=== PATIENT | female | born 1935 | race Caucasian/White ===

== ENCOUNTER 2017-07-18 15:31 | Inpatient (IN) | payer OTHER ==
[~2017-07-18] VITALS: Ht 165.1 cm; Wt 72.6 kg
[~2017-07-18 15:31] MED LIST: ACET325 PO; ACET500 PO; ALBU3IS INH; ALEN70 PO; ASCO250CH PO; ASCO500 PO; ATOR10 PO; Artificial Tea1 EACH BOTHEYES; BECL80OI INH; BISA10S PR; BUME2 PO; CALCAVITD PO; CALCAVITDA PO; CALCIUM 500 +1 EAC2 PO; CEPH500 PO; CETI5 PO; CHLORASEPTIC T1 EACH PO; CLOT1TC TOP; CODGUAEL PO; Cipro500 MG PO; DOCU100 PO; DOXE0.5 PO; DOXY100 PO; EYE BOTHEYES; FAMO20 PO; FLUT.05NI; FLUT44OIA IH; FURO40 PO; Flagyl500 MG PO; HYDACE5 PO; HYDR1TAB94 PO; IPRA.03NI; LEVFLO250 PO; LEVFLO500 PO; LORA10 PO; LORA10ER PO; LOSA50 PO; METO2.5 PO; MOM PO; MONT10T PO; MULVITMIND PO; NYST100TC TOP; NYSTATIN TOP; ONDA4 PO; POTA8 PO; POTCHL20ER PO; Prosource30 ML PO; Rocephin 1g1 G/50 ML IV; SACC250C PO; SERT25 PO; SERT50 PO; SIME80CH PO; SIMV10 PO; SIMV40 PO; SPIR25 PO; TRAM50 PO; Therems1 EACH PO; ZINC20TO TOP; [UNRECOGNIZED DRUG - OTHER] TOP
[2017-07-18] MEDS ORDERED: LEVE500 PO (16:03)
[2017-07-18] MEDS ORDERED: POTA10T PO (16:04)
[2017-07-18] MEDS ORDERED: CHOL10002 PO (16:06)
[2017-07-18] MEDS ORDERED: CRANBERRY450 M1 PO (16:06)
[2017-07-18] MEDS ORDERED: BENZ100A PO (16:08)
[2017-07-18 16:15] LABS: BASOPHILS ABSOLUTE AUTO 0.09 K/mm3 (0.00-0.23); BASOPHILS PERCENT AUTO 1 % (0-2); EOSINOPHILS PERCENT AUTO 2 % (0-6); Hematocrit 45.2 % (33.0-51.0); Hemoglobin 13.8 g/dL (11.5-16.0); IMMATURE GRAN ABSOLUTE AUTO 0.04 K/mm3 (0.00-0.10); IMMATURE GRAN PERCENT AUTO 0 % (0-1); LYMPHOCYTES ABSOLUTE AUTO 1.72 K/mm3 (0.84-5.20); LYMPHOCYTES PERCENT AUTO 15 % (21-46); MONOCYTES ABSOLUTE AUTO 1.04 K/mm3 (0.16-1.47); MONOCYTES PERCENT AUTO 9 % (4-13); Mean Corpuscular HGB 27.9 pg (26.0-34.0); Mean Corpuscular HGB Conc 30.5 g/dL (31.5-36.5); Mean Corpuscular Volume 91 fL (80-100); Mean Platelet Volume 9.9 fL (9.1-12.4); NEUTROPHILS ABSOLUTE AUTO 8.25 K/mm3 (1.96-9.15); NEUTROPHILS PERCENT AUTO 73 % (41-73); Platelet Count 254 K/mm3 (150-400); RDW Coefficient Variation 14.8 % (11.7-14.2); RDW Standard Deviation 49.8 fL (35.1-46.3); Red Blood Cell Count 4.95 M/mm3 (3.80-5.20); White Blood Cell Count 11.34 K/mm3 (4.00-11.30)
[2017-07-18 16:30] LABS: Prothrombin Time Results 10.4 Sec (9.7-11.5)
[2017-07-18 16:39] LABS: Alanine Aminotransfer (ALT/SGP 13 U/L (12-78); Albumin, Blood 3.1 g/dL (3.4-5.0); Albumin/Globulin Ratio 0.9 (0.8-1.8); Alk Phos 94 U/L (50-136); Anion Gap 7 mmol/L (6-16); Aspartate Aminotrans (AST/SGOT 15 U/L (12-37); Bilirubin, Total 0.2 mg/dL (0.1-1.0); Blood Urea Nitrogen 21 mg/dL (8-24); Bun/Creatinine Ratio 22.9 (12.0-20.0); CO2, Blood 32 mmol/L (21-32); Calcium, Blood 8.7 mg/dL (8.5-10.1); Chloride, Blood 102 mmol/L (98-108); Creatinine, Blood 0.92 mg/dL (0.40-1.00); Globulin, Blood 3.5 g/dL (2.2-4.0); Glomerular Filtration Rate >60 (60-); Glucose, Blood 87 mg/dL (70-99); Potassium, Blood 4.7 mmol/L (3.5-5.5); Sodium, Blood 141 mmol/L (136-145); Total Protein, Blood 6.6 g/dL (6.4-8.2)
[2017-07-19 05:38] LABS: BASOPHILS ABSOLUTE AUTO 0.02 K/mm3 (0.00-0.23); BASOPHILS PERCENT AUTO 0 % (0-2); EOSINOPHILS PERCENT AUTO 0 % (0-6); Hematocrit 45.3 % (33.0-51.0); Hemoglobin 13.5 g/dL (11.5-16.0); IMMATURE GRAN ABSOLUTE AUTO 0.04 K/mm3 (0.00-0.10); IMMATURE GRAN PERCENT AUTO 1 % (0-1); LYMPHOCYTES ABSOLUTE AUTO 0.45 K/mm3 (0.84-5.20); LYMPHOCYTES PERCENT AUTO 5 % (21-46); MONOCYTES ABSOLUTE AUTO 0.27 K/mm3 (0.16-1.47); MONOCYTES PERCENT AUTO 3 % (4-13); Mean Corpuscular HGB 27.4 pg (26.0-34.0); Mean Corpuscular HGB Conc 29.8 g/dL (31.5-36.5); Mean Corpuscular Volume 92 fL (80-100); NEUTROPHILS PERCENT AUTO 91 % (41-73); Platelet Count 246 K/mm3 (150-400); RDW Coefficient Variation 14.8 % (11.7-14.2); RDW Standard Deviation 50.6 fL (35.1-46.3); Red Blood Cell Count 4.93 M/mm3 (3.80-5.20); White Blood Cell Count 8.68 K/mm3 (4.00-11.30)
[2017-07-19 06:04] LABS: Alanine Aminotransfer (ALT/SGP 13 U/L (12-78); Albumin, Blood 3.1 g/dL (3.4-5.0); Albumin/Globulin Ratio 0.8 (0.8-1.8); Alk Phos 78 U/L (50-136); Anion Gap 8 mmol/L (6-16); Aspartate Aminotrans (AST/SGOT 12 U/L (12-37); Bilirubin, Total 0.3 mg/dL (0.1-1.0); Blood Urea Nitrogen 22 mg/dL (8-24); Bun/Creatinine Ratio 25.6 (12.0-20.0); CO2, Blood 28 mmol/L (21-32); Calcium, Blood 8.7 mg/dL (8.5-10.1); Chloride, Blood 104 mmol/L (98-108); Creatinine, Blood 0.86 mg/dL (0.40-1.00); Globulin, Blood 3.8 g/dL (2.2-4.0); Glomerular Filtration Rate >60 (60-); Glucose, Blood 144 mg/dL (70-99); Potassium, Blood 4.8 mmol/L (3.5-5.5); Sodium, Blood 140 mmol/L (136-145); Total Protein, Blood 6.9 g/dL (6.4-8.2)
== END 2017-07-20 16:45 | DRG 175 ==
LOC: ER 15:31 → PCU 19:55
PROVIDERS: Emergency Medicine; Internal Medicine
DX: I26.99 Other pulmonary embolism without acute cor pulmonale (principal); J96.01 Acute respiratory failure with hypoxia; I10 Essential (primary) hypertension; G40.909 Epilepsy, unspecified, not intractable, without status epilepticus; E78.5 Hyperlipidemia, unspecified; I73.9 Peripheral vascular disease, unspecified; J44.9 Chronic obstructive pulmonary disease, unspecified; M54.9 Dorsalgia, unspecified; G89.29 Other chronic pain; Z74.09 Other reduced mobility; Z99.3 Dependence on wheelchair; Z86.12 Personal history of poliomyelitis; Z88.6 Allergy status to analgesic agent; Z88.0 Allergy status to penicillin; Z88.8 Allergy status to other drugs, medicaments and biological substances; Z79.899 Other long term (current) drug therapy
CPT/HCPCS: 36415; 71046; 71260; 80053; 85025; 85610; 85730; 92610; 93005; 93010; 93971; 94640; 94760; 94761; 96374; 99285; G8996; G8997; G8998; J1644; J2405; J2930; J3010; J7060; Q9967

== ENCOUNTER 2017-08-22 07:23 | Emergency (ER) | payer OTHER ==
[~2017-08-22] VITALS: Ht 162.6 cm; Wt 68.0 kg
[~2017-08-22 07:23] MED LIST changes: +BENZ100A PO; +CHOL10002 PO; +CRANBERRY450 M1 PO; +LEVE500 PO; +POTA10T PO
[2017-08-22 07:47] LABS: Source, Urine Catheter
[2017-08-22 07:50] LABS: Bilirubin, Urine Neg (Neg); Blood, Urine 2+ (Neg); Glucose Qualitative, Urine Neg (Neg); Ketones, Urine Neg (Neg); Leukocyte Esterase, Urine 3+ (Neg); Nitrite, Urine Pos (Neg); Protein, Urine Neg (Neg); Specific Gravity, Urine 1.015 (1.003-1.022); Urobilinogen, Urine NORM (Normal)
[2017-08-22 07:52] LABS: Appearance, Urine Cloudy (Clear); Color, Urine Yellow (P-Yellow)
[2017-08-22] MEDS ORDERED: Macrobid 100 M100 MG PO (07:56)
[2017-08-22 07:58] LABS: White Blood Cells, Urine TNTC /hpf (0-5)
[2017-08-22 07:59] LABS: Bacteria Many /hpf; Squamous Epithelial Cells Not Seen /hpf (Few)
[2017-08-22 08:00] LABS: Transitional Epithelial Cells Rare /hpf (0-Rare)
[2017-08-22] MEDS ORDERED: XARELTO20 MG PO (08:49)
[2017-08-23] MEDS ORDERED: Zofran Odt4 MG PO (03:09)
== END 2017-08-22 09:45 | disposition home or self-care (01) ==
LOC: ER 07:23
PROVIDERS: Emergency Medicine
DX: R41.82 Altered mental status, unspecified (principal); N39.0 Urinary tract infection, site not specified; E78.5 Hyperlipidemia, unspecified; K21.9 Gastro-esophageal reflux disease without esophagitis; I10 Essential (primary) hypertension; F32.9 Major depressive disorder, single episode, unspecified; Z88.0 Allergy status to penicillin; Z88.6 Allergy status to analgesic agent; Z88.8 Allergy status to other drugs, medicaments and biological substances; Z79.899 Other long term (current) drug therapy
CPT/HCPCS: 81001; 87077; 87086; 87186; 99283; P9612

== ENCOUNTER 2017-08-23 01:00 | Emergency (ER) | payer OTHER ==
[~2017-08-23] VITALS: Ht 162.6 cm; Wt 72.6 kg
[~2017-08-23 01:00] MED LIST changes: +Macrobid 100 M100 MG PO; +XARELTO20 MG PO
[2017-08-23 01:45] LABS: BASOPHILS ABSOLUTE AUTO 0.06 K/mm3 (0.00-0.23); BASOPHILS PERCENT AUTO 0 % (0-2); EOSINOPHILS PERCENT AUTO 0 % (0-6); Hematocrit 43.9 % (33.0-51.0); IMMATURE GRAN ABSOLUTE AUTO 0.08 K/mm3 (0.00-0.10); IMMATURE GRAN PERCENT AUTO 1 % (0-1); LYMPHOCYTES ABSOLUTE AUTO 0.49 K/mm3 (0.84-5.20); LYMPHOCYTES PERCENT AUTO 3 % (21-46); MONOCYTES ABSOLUTE AUTO 0.53 K/mm3 (0.16-1.47); MONOCYTES PERCENT AUTO 4 % (4-13); Mean Corpuscular HGB 28.8 pg (26.0-34.0); Mean Corpuscular HGB Conc 31.9 g/dL (31.5-36.5); Mean Corpuscular Volume 90 fL (80-100); Mean Platelet Volume 9.8 fL (9.1-12.4); NEUTROPHILS ABSOLUTE AUTO 13.29 K/mm3 (1.96-9.15); NEUTROPHILS PERCENT AUTO 92 % (41-73); Platelet Count 282 K/mm3 (150-400); RDW Standard Deviation 52.7 fL (35.1-46.3); Red Blood Cell Count 4.86 M/mm3 (3.80-5.20); White Blood Cell Count 14.45 K/mm3 (4.00-11.30)
[2017-08-23 02:18] LABS: Alanine Aminotransfer (ALT/SGP 16 U/L (12-78); Albumin, Blood 3.3 g/dL (3.4-5.0); Albumin/Globulin Ratio 0.9 (0.8-1.8); Alk Phos 74 U/L (50-136); Anion Gap 10 mmol/L (6-16); Aspartate Aminotrans (AST/SGOT 13 U/L (12-37); Bilirubin, Total 0.4 mg/dL (0.1-1.0); Blood Urea Nitrogen 16 mg/dL (8-24); Bun/Creatinine Ratio 20.5 (12.0-20.0); CO2, Blood 27 mmol/L (21-32); Calcium, Blood 8.3 mg/dL (8.5-10.1); Chloride, Blood 103 mmol/L (98-108); Creatinine, Blood 0.78 mg/dL (0.40-1.00); Globulin, Blood 3.8 g/dL (2.2-4.0); Glomerular Filtration Rate >60 (60-); Glucose, Blood 141 mg/dL (70-99); Potassium, Blood 4.2 mmol/L (3.5-5.5); Sodium, Blood 140 mmol/L (136-145); Total Protein, Blood 7.1 g/dL (6.4-8.2); Troponin I <0.015 ng/mL (0.000-0.040)
[2017-08-23] MEDS ORDERED: Zofran Odt4 MG PO (03:09)
== END 2017-08-23 04:26 | disposition home or self-care (01) ==
LOC: ER 01:00
PROVIDERS: Emergency Medicine
DX: R11.2 Nausea with vomiting, unspecified (principal); E78.5 Hyperlipidemia, unspecified; K21.9 Gastro-esophageal reflux disease without esophagitis; I10 Essential (primary) hypertension; F32.9 Major depressive disorder, single episode, unspecified; Z88.0 Allergy status to penicillin; Z88.6 Allergy status to analgesic agent; Z88.8 Allergy status to other drugs, medicaments and biological substances; Z79.51 Long term (current) use of inhaled steroids; Z79.899 Other long term (current) drug therapy
CPT/HCPCS: 36415; 71046; 80053; 83690; 84484; 85025; 93005; 93010; 96361; 96374; 99283; J2405; J7030

== ENCOUNTER 2017-11-26 10:27 | Emergency (ER) | payer OTHER ==
[~2017-11-26] VITALS: Ht 165.1 cm; Wt 63.5 kg
[~2017-11-26 10:27] MED LIST changes: +Zofran Odt4 MG PO
[2017-11-26] MEDS ORDERED: SPIR25 PO (10:40)
== END 2017-11-26 14:09 | disposition home or self-care (01) ==
LOC: ER 10:27
DX: M79.81 Nontraumatic hematoma of soft tissue (principal); E78.5 Hyperlipidemia, unspecified; K21.9 Gastro-esophageal reflux disease without esophagitis; I10 Essential (primary) hypertension; F31.9 Bipolar disorder, unspecified; Z88.0 Allergy status to penicillin; Z88.8 Allergy status to other drugs, medicaments and biological substances; Z79.899 Other long term (current) drug therapy
CPT/HCPCS: 73600; 93971; 99284

== ENCOUNTER → 2018-01-03 | Outpatient (CLI) | payer OTHER ==
[2018-01-03 09:58] LABS: Bilirubin, Urine Neg (Neg); Blood, Urine 3+ (Neg); Glucose Qualitative, Urine Neg (Neg); Ketones, Urine Neg (Neg); Leukocyte Esterase, Urine 3+ (Neg); Nitrite, Urine Pos (Neg); Protein, Urine 2+ (Neg); Urobilinogen, Urine NORM (Normal)
[2018-01-03 10:15] LABS: Appearance, Urine Cloudy (Clear); Color, Urine Yellow (P-Yellow)
[2018-01-03 10:18] LABS: White Blood Cells, Urine TNTC /hpf (0-5)
[2018-01-03 10:21] LABS: Bacteria Many /hpf
[2018-01-03 10:23] LABS: Squamous Epithelial Cells Rare /hpf (Few)
== END | disposition home or self-care (01) ==
LOC: LAB RH 09:50 → EDSTATUS 14:32
PROVIDERS: Nurse Practitioner Primary Care
DX: N18.3 Chronic kidney disease, stage 3 (moderate) (principal); N39.46 Mixed incontinence
CPT/HCPCS: 81001; 87077; 87086; 87186

== ENCOUNTER → 2018-01-13 | Outpatient (CLI) | payer OTHER ==
[2018-01-13 14:35] LABS: Albumin, Blood 3.5 g/dL (3.4-5.0); Anion Gap 7 mmol/L (6-16); Blood Urea Nitrogen 24 mg/dL (8-24); Bun/Creatinine Ratio 19.7 (12.0-20.0); CO2, Blood 30 mmol/L (21-32); Calcium, Blood 9.7 mg/dL (8.5-10.1); Chloride, Blood 96 mmol/L (98-108); Creatinine, Blood 1.22 mg/dL (0.40-1.00); Glomerular Filtration Rate 45 (60-); Glucose, Blood 150 mg/dL (70-99); Potassium, Blood 5.5 mmol/L (3.5-5.5); Sodium, Blood 133 mmol/L (136-145)
== END | disposition home or self-care (01) ==
LOC: LAB RH 13:54 → EDSTATUS 14:34
PROVIDERS: Internal Medicine Nephrology
DX: N18.3 Chronic kidney disease, stage 3 (moderate) (principal); D63.1 Anemia in chronic kidney disease; D75.1 Secondary polycythemia
CPT/HCPCS: 80069

== ENCOUNTER 2018-05-20 02:08 | Inpatient (IN) | payer OTHER ==
[~2018-05-20] VITALS: Ht 162.6 cm; Wt 68.7 kg
[~2018-05-20 02:08] MED LIST changes: +XARELTO10 MG PO; -XARELTO20 MG PO
[2018-05-20] MEDS ORDERED: SPIR25 PO (02:26)
[2018-05-20] MEDS ORDERED: BUME1 PO (02:27)
[2018-05-20] MEDS ORDERED: BUME2 (02:27)
[2018-05-20] MEDS ORDERED: DOCU100 PO (02:29)
[2018-05-20] MEDS ORDERED: CRANBERRY450 M1 PO (02:29)
[2018-05-20] MEDS ORDERED: BISA10S PR (02:29)
[2018-05-20] MEDS ORDERED: COMBIVENT RESPIM4 GM INH (02:31)
[2018-05-20] MEDS ORDERED: LEVE500 PO ×2 (02:32→02:33)
[2018-05-20] MEDS ORDERED: Micro-K10 MEQ PO (02:33)
[2018-05-20] MEDS ORDERED: GAVILAX17 GM PO (02:34)
[2018-05-20] MEDS ORDERED: FAMO20 PO (02:34)
[2018-05-20] MEDS ORDERED: Q-Tussin100 MG/5 M PO (02:35)
[2018-05-20 02:40] LABS: BASOPHILS ABSOLUTE AUTO 0.08 K/mm3 (0.00-0.23); BASOPHILS PERCENT AUTO 1 % (0-2); EOSINOPHILS ABSOLUTE AUTO 0.03 K/mm3 (0.00-0.68); EOSINOPHILS PERCENT AUTO 0 % (0-6); Hematocrit 35.4 % (33.0-51.0); Hemoglobin 9.8 g/dL (11.5-16.0); IMMATURE GRAN ABSOLUTE AUTO 0.05 K/mm3 (0.00-0.10); IMMATURE GRAN PERCENT AUTO 0 % (0-1); LYMPHOCYTES ABSOLUTE AUTO 2.12 K/mm3 (0.84-5.20); LYMPHOCYTES PERCENT AUTO 18 % (21-46); MONOCYTES ABSOLUTE AUTO 1.22 K/mm3 (0.16-1.47); MONOCYTES PERCENT AUTO 10 % (4-13); Mean Corpuscular HGB 21.5 pg (26.0-34.0); Mean Corpuscular HGB Conc 27.7 g/dL (31.5-36.5); Mean Corpuscular Volume 78 fL (80-100); Mean Platelet Volume 9.6 fL (9.1-12.4); NEUTROPHILS ABSOLUTE AUTO 8.57 K/mm3 (1.96-9.15); NEUTROPHILS PERCENT AUTO 71 % (41-73); Platelet Count 298 K/mm3 (150-400); RDW Coefficient Variation 17.4 % (11.7-14.2); RDW Standard Deviation 49.6 fL (35.1-46.3); Red Blood Cell Count 4.56 M/mm3 (3.80-5.20); White Blood Cell Count 12.07 K/mm3 (4.00-11.30)
[2018-05-20 03:00] LABS: Albumin, Blood 2.9 g/dL (3.4-5.0); Albumin/Globulin Ratio 0.8 (0.8-1.8); Bilirubin, Total 0.4 mg/dL (0.1-1.0); Bun/Creatinine Ratio 19.6 (12.0-20.0); Creatinine, Blood 1.07 mg/dL (0.40-1.00); Globulin, Blood 3.5 g/dL (2.2-4.0); Potassium, Blood 4.1 mmol/L (3.5-5.5); Total Protein, Blood 6.4 g/dL (6.4-8.2)
[2018-05-20 04:14] LABS: International Normalized Ratio 1.06; Prothrombin Time Results 10.9 Sec (9.7-11.5)
--- NOTE | 2018-05-20 06:11 | NUR ---
ADMIT PT ARRIVED TO ICU 11 AT 0505 MEDICAL STATUS WITH TELE. PT IS ALERT AND ORIENTED TO SELF AND FOLLOWING DIRECTION, BUT IS CONFUSED OTHERWISE. PT IS CALM AND COOPERATIVE. PT DENIES PAIN, SOB, OR NAUSEA. PT ON 2L O2 NC, VITAL SIGNS STABLE. NS INFUSING AT 100 ML/HR AND HEPARIN GTT INFUSING AT 13 UNITS/HR PER PHARMACY ORDERS. PT INCONTINENT UPON ARRIVAL, ATTENDS CHANGED AT THAT TIME. PT RIGHT LEG IS SWOLLEN, REDDENED, AND WARM BELOW THE KNEE. PT STATES IT HAS BEEN THIS WAY FOR AWHILE. NO FAMILY PRESENT. WILL CONTINUE TO MONITOR AND REPORT OFF TO ONCOMING RN.
[2018-05-20] MEDS ORDERED: KEPPRA250 MG PO (06:13)
[2018-05-20] MEDS ORDERED: ENEMA READY TO133 ML PR (06:23)
--- NOTE | 2018-05-20 07:15 | NUR ---
START OF SHIFT NOTE: RECEIVED REPORT FROM ANYA RN, ASSUMED CARE, PATIENT IS LYING IN BED AND STATES "I AM TIRED", ADMITTED DURING NIGHT FOR POSSIBLE BILATERAL PE'S, 18G IV WAS PLACED IN LEFT AC, PATIENT TOLERATED WELL, AFEBRILE, DENIES PAIN, REPORTS NO SHORTNESS OF BREATH, DENIES CHEST PAIN/COMFORT, MECHANICAL APPLICATIONS ENGINEER IN TO DO ORDERED ECHO, PT IN TO SEE PATIENT, DR. LING IN TO SEE PATIENT, NEW ORDERS RECEIVED, PAGE FROM RADIOLOGY, WILL COME FOR PATIENT AFTER 10:00 AM TO DO PE STUDY, PATIENT IS INCONTINENT, ATTENDS CHANGED AND CLEANED, NEW LINEN UNDER PATIENT, PATIENT IS ALERT AND ORIENTED TO SELF ONLY, PLEASANTLY CONFUSED, RESIDES NORMALLY AT [facility], REPOSITIONED FOR COMFORT, CALL LIGHT IN REACH, WILL CONTINUE TO MONITOR.
--- NOTE | 2018-05-20 10:13 | NUR ---
PATIENT TOOK AM MEDICATION WITH CHOCOLATE PUDDING, NO PROBLEMS SWALLOWING, WILL CONTINUE TO MONITOR.
--- NOTE | 2018-05-20 11:41 | NUR ---
JABIER, TRANSPORT HERE TO TAKE PATIENT TO IMAGING FOR PE STUDY,
--- NOTE | 2018-05-20 15:42 | NUR ---
ATTEMPTED TO CALL REPORT TO RECEIVING RN IN PCU, WILL CALL BACK ONCE HER ADMIT IS SETTLED.
--- NOTE | 2018-05-20 16:21 | NUR ---
PATIENT WAS ADMITTED WITH CODE STATUS "DNR", PER LAZARO THE PATIENT WISHES TO BE A FULL CODE AND IS VERY ADAMEND ABOUT IT, WHEN READING DR. MAJOR'S H&P FROM LAST NIGHTS ADMISSION HE LISTED THE PATIENTS CODE STATUS "FULL CODE", CALLED DR. LING AND RECEIVED TELEPHONE ORDER TO CHANGE CODE STATUS FROM DNR TO FULL CODE.
--- NOTE | 2018-05-20 16:31 | NUR ---
REPORT CALLED TO DENNY DONOHUE RN, ON PCU, PATIENT WILL BE TRANSFERRED TO ROOM 11 ON PCU VIA BED.
--- NOTE | 2018-05-20 16:58 | NUR ---
PATIENT TRANSFERRED TO PCU 11 VIA BED.
[2018-05-21 04:05] LABS: BASOPHILS ABSOLUTE AUTO 0.06 K/mm3 (0.00-0.23); BASOPHILS PERCENT AUTO 1 % (0-2); EOSINOPHILS ABSOLUTE AUTO 0.21 K/mm3 (0.00-0.68); EOSINOPHILS PERCENT AUTO 2 % (0-6); Hematocrit 34.1 % (33.0-51.0); Hemoglobin 9.2 g/dL (11.5-16.0); IMMATURE GRAN ABSOLUTE AUTO 0.05 K/mm3 (0.00-0.10); IMMATURE GRAN PERCENT AUTO 0 % (0-1); LYMPHOCYTES ABSOLUTE AUTO 1.14 K/mm3 (0.84-5.20); LYMPHOCYTES PERCENT AUTO 10 % (21-46); MONOCYTES ABSOLUTE AUTO 0.95 K/mm3 (0.16-1.47); MONOCYTES PERCENT AUTO 8 % (4-13); Mean Corpuscular Volume 78 fL (80-100); Mean Platelet Volume 9.7 fL (9.1-12.4); NEUTROPHILS ABSOLUTE AUTO 9.07 K/mm3 (1.96-9.15); NEUTROPHILS PERCENT AUTO 79 % (41-73); Platelet Count 272 K/mm3 (150-400); RDW Coefficient Variation 17.5 % (11.7-14.2); RDW Standard Deviation 49.1 fL (35.1-46.3); Red Blood Cell Count 4.39 M/mm3 (3.80-5.20); White Blood Cell Count 11.48 K/mm3 (4.00-11.30)
[2018-05-21 04:27] LABS: Albumin, Blood 2.9 g/dL (3.4-5.0); Albumin/Globulin Ratio 0.9 (0.8-1.8); Bilirubin, Total 0.2 mg/dL (0.1-1.0); Bun/Creatinine Ratio 18.8 (12.0-20.0); Calcium, Blood 7.6 mg/dL (8.5-10.1); Creatinine, Blood 1.17 mg/dL (0.40-1.00); Globulin, Blood 3.2 g/dL (2.2-4.0); Magnesium, Blood 2.3 mg/dL (1.6-2.4); Potassium, Blood 4.5 mmol/L (3.5-5.5); Total Protein, Blood 6.1 g/dL (6.4-8.2)
--- NOTE | 2018-05-21 06:45 | NUR ---
SHIFTS SUMMARY: PATIENT IS A&O X3, DOES NOT KNOW DATE, VS ARE STABLE. INC. OF BOWEL AND BLADDER, Q 2H T&P WITH ATTENDS CHANGES. BUTTOCKS IS RED, BARIER CREAM IS APPLIED. BED ALARM IS ON FOR SAFETY. CALL TERRELL IS WITHIN REACH
--- NOTE | 2018-05-21 09:00 | NUR ---
REPORT RECIEVED FROM CHARLES MEDINA, PT IS RESTING WITH EYES CLOSED RESP, E/U.
--- NOTE | 2018-05-21 10:15 | NUR ---
REOPORT GIVEN TO NELLY MEDINA.
--- NOTE | 2018-05-21 18:09 | NUR ---
PCU NOC SHIFT SUMMARY PATIENT ALERT AND ORIENTED TO SELF. PATIENT CONFUSED AT TIMES TO LOCATION THINKING THAT SHE IS STILL AT [facility]. PATIENT COOPERATIVE WITH CARE; PATIENT ENCOURAGED AND MOTIVATED TO PROVIDE SELF CARE MUCH TOLERATED. PER [facility] PATIENT IS BEDREST WITH LIFT AND/OR WHEELCHAIR AT FACILITY. PATIENT BILATERAL FEET/ANKLES ARE TURNED IN (DECORDICATED) WITH BLE EDEMA NOTED. PATIENT TURNED Q2 AND UP TO CHAIR WITH LIFE THIS SHIFT. PATIENT EATING AND DRINKING WELL WITH EXCEPTION OF CONCERN FOR POSSIBLE ASPIRATION - PATIENT SET UP AT 90 DEGREES AND EDUCATED TO EAT SLOW AND CHEW FOOD - SPEECH EVAL ORDERED. PATIENT HAD [address] - WHEN ATTEMPTED TO TITRATE OXYGEN PATIENT WOULD DESATURATE DOWN TO 84% ON ROOM AIR - PATIENT NEEDS HOME O2 EVAL. PATIENT TO D/C TO [facility]. NO ACUTE DISTRESS NOTED; VSS; CALL LIGHT W/I REACH. WILL CONTINUE TO MONITOR AND GIVE REPORT TO NOC SHIFT RN.
--- NOTE | 2018-05-21 21:11 | NUR ---
CARE ASSUMPTION PT MED, NO TELE STATUS, A&O X4, CALM AND COOPERATIVE. PT ON BEDREST/WHEELCHAIR BOUND AT BASELINE. LUNG SOUNDS CLEAR T/0, DIM IN BASES. SPO2 > 92% ON 1L NC. PT HAS OCCASSIONAL NONPRODUCTIVE COUGH. PT SAT UPRIGHT FOR MEDICATION SWALLOWING IN BED, PT ABLE TO SWALLOW MEDS W/OUT DIFFICULTY BUT BEGINS COUGHING DIRECTLY AFTER SWALLOWING PILLS W/ WATER. PT INCONTINENT, WEARING ATTENDS. PRN RICARDO CARE AND ATTENDS CHANGES PROVIDED. Q2H TURNS. WILL CONTINUE TO MONITOR AND PROVIDE CARE.
[2018-05-22 03:56] LABS: BASOPHILS ABSOLUTE AUTO 0.07 K/mm3 (0.00-0.23); BASOPHILS PERCENT AUTO 1 % (0-2); EOSINOPHILS ABSOLUTE AUTO 0.26 K/mm3 (0.00-0.68); EOSINOPHILS PERCENT AUTO 2 % (0-6); Hematocrit 34.5 % (33.0-51.0); Hemoglobin 9.3 g/dL (11.5-16.0); IMMATURE GRAN ABSOLUTE AUTO 0.06 K/mm3 (0.00-0.10); IMMATURE GRAN PERCENT AUTO 1 % (0-1); LYMPHOCYTES PERCENT AUTO 9 % (21-46); MONOCYTES ABSOLUTE AUTO 1.05 K/mm3 (0.16-1.47); MONOCYTES PERCENT AUTO 9 % (4-13); Mean Corpuscular Volume 78 fL (80-100); Mean Platelet Volume 9.5 fL (9.1-12.4); NEUTROPHILS ABSOLUTE AUTO 9.58 K/mm3 (1.96-9.15); NEUTROPHILS PERCENT AUTO 79 % (41-73); Platelet Count 290 K/mm3 (150-400); RDW Coefficient Variation 17.6 % (11.7-14.2); Red Blood Cell Count 4.42 M/mm3 (3.80-5.20); White Blood Cell Count 12.12 K/mm3 (4.00-11.30)
[2018-05-22 04:21] LABS: Albumin, Blood 2.8 g/dL (3.4-5.0); Albumin/Globulin Ratio 0.8 (0.8-1.8); Bilirubin, Total 0.5 mg/dL (0.1-1.0); Bun/Creatinine Ratio 21.9 (12.0-20.0); Calcium, Blood 7.6 mg/dL (8.5-10.1); Creatinine, Blood 1.05 mg/dL (0.40-1.00); Globulin, Blood 3.4 g/dL (2.2-4.0); Magnesium, Blood 2.4 mg/dL (1.6-2.4); Potassium, Blood 4.4 mmol/L (3.5-5.5); Total Protein, Blood 6.2 g/dL (6.4-8.2)
--- NOTE | 2018-05-22 07:58 | NUR ---
[id number] PT W/ MOIST, NONPRODUCTIVE COUGH. O2 1L NASAL CANULA. EXPRESSING RIB DISCOMFORT AFTER COUGHING PAROXYSM, FRUSTRATION OF INSOMNIA, TYLENOL OFFERED, PT SLEEPING WHEN RETURNED, SLEPT AT INTERVALS, PERICARE, PART LINEN CHANGES INTERMIT FOR URINARY INCONT NOT CONTAINED BY ATTENDS. PT W/AUDIBLE WHEEZE, MARGINAL SPO2 AFTER MOVING IN BED, R.T. CALLED FOR INTERVENTION. IMPROVED. O2 AT 2L. RETURNED TO SLEEP, ADMITS TO ONLY MILD PAIN IN AM
--- NOTE | 2018-05-22 08:10 | NUR ---
INITIAL ASSESSMENT: Pt resting in bed. Denies pain at this time. LS diminished with coarsness throughout. HR reg. BT positive. Pulses palp. RLE with slightly more edema then L. Redness on coccyx. Pt has a history of polio and has poor movement of BLE. VSS. Call light in reach. Pt has barking cough that is non-productive. Denies other needs. Will monitor.
--- NOTE | 2018-05-22 11:03 | NUR ---
UPDATE: PT STATES THAT SHE IS FEELING NAUSEAS AND THAT SHE HAS A HEADACHE. PT SLIGHTLY DIAPHERETIC. AFEBRIAL. WILL MEDICATE WITH ZOFRAN AND TYLENOL PER ORDERS. VSS. PT CLEANED UP AND REPOSITIONED. WILL CONTINUE TO MONITOR.
--- NOTE | 2018-05-22 18:35 | NUR ---
SHIFT SUMMARY: Pt resting in bed. LS with wheezing and diminished throughout. Pt has been coughing throughout shift but has not coughed anything up. Pt has had some back pain and has had a headache on and off throughout shift. VSS throughout shift. Pt has one episode of nausea with no emisis. Zofran worked for nausea. No acute changes throughout shift.
--- NOTE | 2018-05-22 19:40 | NUR ---
ASSUMED CARE PT RESTING IN ROOM. PER DAY SHIFT PT HAS BEEN PAINFUL IN NECK AND SHOULDERS AND UTILIZES CALL LIGHT OFTEN FOR REPOSITIONING AND REQUESTING HELP FOR PAIN. PT REPOSITIONED AND PROPPED UP WITH PILLOWS AT SHIFT CHANGE AND WAS MEDICATED FOR PAIN PRIOR TO SHIFT CHANGE. RESP EVEN UNLABORED BUT SHALLOW AND TACHYPNIC. PER DAY SHIFT THIS IS BASELINE FOR PT. PT REPOTS PAIN IS BETTER WITH REPOSITION. PT NATURALLY LEANS TO R SIDE FOR COMFORT. CALL LIGHT IS IN REACH.
[2018-05-23 05:18] LABS: BASOPHILS PERCENT AUTO 1 % (0-2); EOSINOPHILS ABSOLUTE AUTO 0.18 K/mm3 (0.00-0.68); EOSINOPHILS PERCENT AUTO 1 % (0-6); Hematocrit 37.3 % (33.0-51.0); Hemoglobin 9.8 g/dL (11.5-16.0); IMMATURE GRAN ABSOLUTE AUTO 0.05 K/mm3 (0.00-0.10); IMMATURE GRAN PERCENT AUTO 0 % (0-1); LYMPHOCYTES ABSOLUTE AUTO 1.29 K/mm3 (0.84-5.20); LYMPHOCYTES PERCENT AUTO 10 % (21-46); MONOCYTES ABSOLUTE AUTO 1.18 K/mm3 (0.16-1.47); MONOCYTES PERCENT AUTO 9 % (4-13); Mean Corpuscular HGB 20.9 pg (26.0-34.0); Mean Corpuscular HGB Conc 26.3 g/dL (31.5-36.5); Mean Corpuscular Volume 80 fL (80-100); NEUTROPHILS ABSOLUTE AUTO 10.03 K/mm3 (1.96-9.15); NEUTROPHILS PERCENT AUTO 78 % (41-73); Platelet Count 348 K/mm3 (150-400); RDW Coefficient Variation 17.8 % (11.7-14.2); RDW Standard Deviation 51.3 fL (35.1-46.3); Red Blood Cell Count 4.69 M/mm3 (3.80-5.20); White Blood Cell Count 12.83 K/mm3 (4.00-11.30)
--- NOTE | 2018-05-23 05:24 | NUR ---
SHIFT SUMMARY PT SLEPT IN SHORT PERIODS T/O THE NIGHT. CALLED OUT SEVERAL TIMES T/O NIGHT. PT DID NOT USE CALL LIGHT. PT BECAME INCREASINGLY FRUSTRATED T/O NIGHT, ASKING FOR TIME, AND WHY SHE WAS HERE, AND WHEN SHE WAS GOING HOME. PT EDUCATED ON REASON FOR HOSPITAL STAY AND THAT PROVIDER WILL BE IN TO EVALUATE HER IN THE AM. NO ACUTE CHANAGES IN STATUS. PT RESP EVEN UNLABORED, AND TACHYPNIC. [facility]
[2018-05-23 06:06] LABS: Bun/Creatinine Ratio 24.5 (12.0-20.0); Creatinine, Blood 1.1 mg/dL (0.40-1.00); Potassium, Blood 4.9 mmol/L (3.5-5.5)
--- NOTE | 2018-05-23 11:43 | NUR ---
pt resting wanting to eat snacks want to go back to [facility]. Pt has polst on file but notes form [facility] state limited treatment. will attempt copy of polst. Pt at one time was on comfort care and was going towards hospice. Will speak with atilio who we have contacted in past for plan of care. pt being managed by dr Bhakta and Dr. Akbar.
--- NOTE | 2018-05-23 15:45 | NUR ---
NOTE FREQUENT CALLING OUT. HAVE REMIONDED HER REPEATEDLY ABOUT FLOOR ROUNDING POLICY. PT IS ABLE TO USE CALL LIGHT. VSS. TURNED Q2H FOR SKIN PROTECTION. SHE REFUSES TO DO FOR HERSELF UNLESS ENCOURAGED FIRMLY TO LIFT HER OWN CUP AND LIFT HER HEAD UP. PT WANTS TO GO BACK TO [facility]. HAVE NOT HEARD ABOUT A BED FOR HER YET. CONTINUE POT.
--- NOTE | 2018-05-23 17:38 | NUR ---
NOTE PT ALERT AND COOPERATIVE WITH CARE. VSS. DEEP CONGESTED COUGH. SHE HASN'T COUGHED ANYTHING OUT YET. GOOD APPETITE. TAKING PILLS WITH APPLESAUCE WELL. TALKED WITH PT FAMILY ON THE PHONE. ENCOURAGED TO TURN SELF AND USE TRAPEZE FOR BED MOBILITY. SHE HAS GOTTEN BETTER AT SHIFTING HERSELF IN BED. SHE STILL YELLS OUT AT TIMES. SHE CAN'T READ THE CLOCK SO SHE DOESN'T KNOW WHEN STAFF ARE DUE TO COME ROUND ON HER. CONTINUE POT.
[2018-05-24 04:21] LABS: BASOPHILS PERCENT AUTO 1 % (0-2); EOSINOPHILS ABSOLUTE AUTO 0.13 K/mm3 (0.00-0.68); EOSINOPHILS PERCENT AUTO 1 % (0-6); Hematocrit 34.6 % (33.0-51.0); Hemoglobin 9.5 g/dL (11.5-16.0); IMMATURE GRAN ABSOLUTE AUTO 0.06 K/mm3 (0.00-0.10); IMMATURE GRAN PERCENT AUTO 1 % (0-1); LYMPHOCYTES PERCENT AUTO 13 % (21-46); MONOCYTES ABSOLUTE AUTO 1.32 K/mm3 (0.16-1.47); MONOCYTES PERCENT AUTO 10 % (4-13); Mean Corpuscular HGB 21.1 pg (26.0-34.0); Mean Corpuscular HGB Conc 27.5 g/dL (31.5-36.5); Mean Platelet Volume 9.8 fL (9.1-12.4); NEUTROPHILS ABSOLUTE AUTO 9.94 K/mm3 (1.96-9.15); NEUTROPHILS PERCENT AUTO 75 % (41-73); Platelet Count 331 K/mm3 (150-400); RDW Coefficient Variation 17.9 % (11.7-14.2); RDW Standard Deviation 49.1 fL (35.1-46.3); Red Blood Cell Count 4.51 M/mm3 (3.80-5.20); White Blood Cell Count 13.25 K/mm3 (4.00-11.30)
[2018-05-24 04:23] LABS: Mean Corpuscular Volume 77 fL (80-100)
[2018-05-24 04:40] LABS: Bun/Creatinine Ratio 23.4 (12.0-20.0); Calcium, Blood 7.9 mg/dL (8.5-10.1); Creatinine, Blood 1.07 mg/dL (0.40-1.00); Potassium, Blood 4.2 mmol/L (3.5-5.5)
--- NOTE | 2018-05-24 06:20 | NUR ---
SHIFT SUMMARY- PT HAS REMAINED AOX4 THROUGHOUT SHIFT. VSS. PLEASANT AND COOPERATIVE WITH CARE. PT HAS REMAINED ON BEDREST THROUGHOUT SHIFT AND APPEARED TO SLEEP THROUGHOUT MUCH OF THE NIGHT. PT CALLED OUT INTO HALLWAY SEVERAL TIMES AT START OF SHIFT FOR ASSISTANCE- EDUCATED [employer] AND CALLING FOR ASSISTANCE WITH CARE- PT UTILIZED CALL LIGHT SYSTEM APPROPRIATELY THROUGHOUT REMAINDER OF SHIFT. PT REQUIRES ENCOURAGEMENT TO KEEP NASAL CANNULA IN PLACE WHEN SLEEPING. O2 SATS HAVE REMAINED >90% ON 2L VIA NASAL CANNULA. LUNG WHEEZES HAVE DECREASED THROUGHOUT THE NIGHT AND PATIENT IS REPORTING LESS DYSPNEA. COUGH STRENGTH HAS INCREASED, BUT REMAINS NON-PRODUCTIVE. NO OTHER CHANGES FROM INITIAL ASSESSMENT. WILL CONTINUE TO MONITOR AND REPORT TO ONCOMING RN. BED IN LOW POSITION, CALL LIGHT IN REACH, BED ALARM SET FOR SAFETY.
--- NOTE | 2018-05-24 11:27 | NUR ---
TRANSFER TO RM 302 PT REPORT CALLED TO LOY MEDINA. PT TRANSFERED IN BED TO ROOM 302 WHERE THE BEDS WERE SWAPPED OUT. PT ALERT AND AGREEABLE TO MOVE. FAMILY AWARE OF TRANSFER. CONTINUE POT.
--- NOTE | 2018-05-24 12:00 | NUR ---
TRANSFER PT TRANSFERRED TO ROOM 302 FROM PCU VIA BED. PT ALERT AND ORIENTED TO ROOM, CALL LIGHT. MEDICATED PT FOR RIGHT SHOULDER PAIN PER EMAR. PT HAS NO FURTHER REQUESTS OR COMPLAINTS AT THIS TIME. CALL LIGHT IN REACH. WILL CONTINUE TO MONITOR.
--- NOTE | 2018-05-24 17:42 | NUR ---
SHIFT SUMMARY PT WAS A TRANSFER FROM PCU THIS AFTERNOON. PT C/O RIGHT SHOULDER PAIN WHEN ARRIVED TO ROOM. MEDICATED FOR PAIN WITH TYLENOL PER EMAR. PT WENT TO SLEEP AFTER AND HAS HAD NO COMPLAINTS SINCE. NO CHANGES THIS SHIFT. CALL LIGHT IN REACH. WILL CONTINUE TO MONITOR AND REPORT TO ONCOMING RN.
--- NOTE | 2018-05-25 04:02 | NUR ---
pt requested heating pad for R shoulder, received doctors order, applied heating pad to shoulder, pt states it made her feel better
[2018-05-25 05:05] LABS: BASOPHILS ABSOLUTE AUTO 0.09 K/mm3 (0.00-0.23); BASOPHILS PERCENT AUTO 1 % (0-2); EOSINOPHILS ABSOLUTE AUTO 0.18 K/mm3 (0.00-0.68); EOSINOPHILS PERCENT AUTO 2 % (0-6); Hematocrit 34.1 % (33.0-51.0); Hemoglobin 9.2 g/dL (11.5-16.0); IMMATURE GRAN ABSOLUTE AUTO 0.05 K/mm3 (0.00-0.10); IMMATURE GRAN PERCENT AUTO 0 % (0-1); LYMPHOCYTES ABSOLUTE AUTO 1.17 K/mm3 (0.84-5.20); LYMPHOCYTES PERCENT AUTO 10 % (21-46); MONOCYTES ABSOLUTE AUTO 1.14 K/mm3 (0.16-1.47); MONOCYTES PERCENT AUTO 10 % (4-13); Mean Corpuscular Volume 78 fL (80-100); Mean Platelet Volume 9.9 fL (9.1-12.4); NEUTROPHILS PERCENT AUTO 77 % (41-73); Platelet Count 311 K/mm3 (150-400); Red Blood Cell Count 4.39 M/mm3 (3.80-5.20); White Blood Cell Count 11.23 K/mm3 (4.00-11.30)
[2018-05-25 05:29] LABS: Calcium, Blood 8.3 mg/dL (8.5-10.1)
--- NOTE | 2018-05-25 06:57 | NUR ---
still coughing, states heating pad helps shoulder, call light in reach, 2L via nc, saline locked able to make needs known, uses voice as well as call light, SBAR report given to returning rn
[2018-05-25] MEDS ORDERED: ONDA4ODT MM (12:32)
[2018-05-25] MEDS ORDERED: CLOP75 PO (12:32)
[2018-05-25] MEDS ORDERED: METO25 PO (12:33)
--- NOTE | 2018-05-25 16:19 | NUR ---
DISCHARGE PT DISCHARGED TO [facility], WHERE PT LIVES. REPORT CALLED TO [facility] AND THIS RN TALKED WITH CAROL COTTON. GAVE REPORT ON PT AND THAT SHE NOW WEARS 1.5L OF OXYGEN VIA NC. PT TRANSFERRED TO WHEELCHAIR VAN BY USING LIFT AND PLACING PT IN WHEELCHAIR. NO BELONGINGS NOTED WITH PT.
== END 2018-05-25 14:31 | disposition home or self-care (01) | DRG 189 ==
LOC: ER 02:08 → ICUW 04:22 → MEDS 04:22 → ICUW 05:03 → PCU 16:58 → MEDS 05-24 11:28
PROVIDERS: Emergency Medicine; Internal Medicine; ADMIT Hospitalist
DX: J96.01 Acute respiratory failure with hypoxia (principal); I13.0 Hypertensive heart and chronic kidney disease with heart failure and stage 1 through stage 4 chronic kidney disease, or unspecified chronic kidney disease; I50.32 Chronic diastolic (congestive) heart failure; R79.89 Other specified abnormal findings of blood chemistry; R56.9 Unspecified convulsions; A80.9 Acute poliomyelitis, unspecified; N18.3 Chronic kidney disease, stage 3 (moderate); F03.90 Unspecified dementia, unspecified severity, without behavioral disturbance, psychotic disturbance, mood disturbance, and anxiety; F32.9 Major depressive disorder, single episode, unspecified; Z86.711 Personal history of pulmonary embolism
CPT/HCPCS: 36415; 71046; 71260; 80048; 80053; 83735; 83880; 84484; 85025; 85610; 85730; 92610; 93005; 93010; 93306; 94640; 94667; 94760; 96361; 96374; 97110; 97161; 97530; 99285-25; G8978; G8979; G8996; G8997; J0456; J1644; J2405; J7030; J7050; Q9967

== ENCOUNTER 2018-10-01 22:53 | Inpatient (IN) | payer OTHER ==
[~2018-10-01] VITALS: Ht 157.5 cm; Wt 76.0 kg
[~2018-10-01 22:53] MED LIST changes: +BUME1 PO; +BUME2; +CLOP75 PO; +COMBIVENT RESPIM4 GM INH; +ENEMA READY TO133 ML PR; +GAVILAX17 GM PO; +KEPPRA250 MG PO; +METO25 PO; +Micro-K10 MEQ PO; +ONDA4ODT MM; +Q-Tussin100 MG/5 M PO
[2018-10-01 23:54] LABS: BASOPHILS ABSOLUTE AUTO 0.08 K/mm3 (0.00-0.23); BASOPHILS PERCENT AUTO 1 % (0-2); EOSINOPHILS PERCENT AUTO 0 % (0-6); Hematocrit 40.2 % (33.0-51.0); Hemoglobin 10.6 g/dL (11.5-16.0); IMMATURE GRAN ABSOLUTE AUTO 0.13 K/mm3 (0.00-0.10); IMMATURE GRAN PERCENT AUTO 1 % (0-1); LYMPHOCYTES ABSOLUTE AUTO 0.85 K/mm3 (0.84-5.20); LYMPHOCYTES PERCENT AUTO 6 % (21-46); MONOCYTES ABSOLUTE AUTO 1.03 K/mm3 (0.16-1.47); MONOCYTES PERCENT AUTO 7 % (4-13); Mean Corpuscular HGB 21.2 pg (26.0-34.0); Mean Corpuscular HGB Conc 26.4 g/dL (31.5-36.5); Mean Corpuscular Volume 81 fL (80-100); Mean Platelet Volume 9.6 fL (9.1-12.4); NEUTROPHILS ABSOLUTE AUTO 13.16 K/mm3 (1.96-9.15); NEUTROPHILS PERCENT AUTO 86 % (41-73); Platelet Count 349 K/mm3 (150-400); RDW Coefficient Variation 17.5 % (11.7-14.2); Red Blood Cell Count 4.99 M/mm3 (3.80-5.20); White Blood Cell Count 15.25 K/mm3 (4.00-11.30)
[2018-10-02 00:14] LABS: Albumin, Blood 3.4 g/dL (3.4-5.0); Bilirubin, Total 0.3 mg/dL (0.1-1.0); Creatinine, Blood 1.08 mg/dL (0.40-1.00); Globulin, Blood 3.5 g/dL (2.2-4.0); Potassium, Blood 5.3 mmol/L (3.5-5.5); Total Protein, Blood 6.9 g/dL (6.4-8.2); Troponin I 0.077 ng/mL (0.000-0.040)
[2018-10-02 00:17] LABS: Base Excess Venous 9.5 mmol/L; Bicarbonate Venous 31.1 mmol/L (24.0-30.0); PCO2 Venous 81.1 mmHg (38-42); PO2 Venous 176 mmHg (38-42); pH Blood Venous 7.26 (7.34-7.37)
[2018-10-02 01:00] LABS: Source, Urine Clean Catch
[2018-10-02 01:03] LABS: Bilirubin, Urine Neg (Neg); Blood, Urine 4+ (Neg); Glucose Qualitative, Urine Neg (Neg); Ketones, Urine Neg (Neg); Leukocyte Esterase, Urine 3+ (Neg); Nitrite, Urine Pos (Neg); Protein, Urine 2+ (Neg); Urobilinogen, Urine NORM (Normal)
[2018-10-02 01:05] LABS: Appearance, Urine Cloudy (Clear); Color, Urine Yellow (P-Yellow)
[2018-10-02 01:09] LABS: Bacteria Many /hpf; Red Blood Cells, Urine 0-2 /hpf (0-2); Squamous Epithelial Cells Not Seen /hpf (Few); White Blood Cells, Urine TNTC /hpf (0-5)
[2018-10-02 03:34] LABS: U Amphetamine Screen Not Detected; U Barbituate Screen Not Detected; U Benzodiazapine Screen Not Detected; U Buprenorphine Screen Not Detected; U Cannabinoids Screen Not Detected; U Cocaine Screen Not Detected; U Methadone Screen Not Detected; U Methamphetamine Screen Not Detected; U Opiates Screen Not Detected; U Oxycodone Screen Not Detected; U Phencyclidine Screen Not Detected; U Propoxyphene Screen Not Detected
[2018-10-02] MEDS ORDERED: Procrit40000 UNIT IM (03:47)
[2018-10-02] MEDS ORDERED: BUME1 PO (03:52)
[2018-10-02 03:55] LABS: PCO2 Arterial 96.1 mmHg (35-45); PO2 Arterial 69.2 mmHg (80-100)
[2018-10-02] MEDS ORDERED: COMBIVENT RESPIM4 GM (03:55)
[2018-10-02 05:40] LABS: PCO2 Arterial 80.2 mmHg (35-45); PO2 Arterial 84.6 mmHg (80-100); pH Blood Arterial 7.26 (7.35-7.45)
[2018-10-02 05:46] LABS: Adenovirus Not Detected (NOT DETECT); Bordetella pertussis Not Detected (NOT DETECT); Chlamydophila pneumoniae Not Detected (NOT DETECT); Coronavirus 229E Not Detected (NOT DETECT); Coronavirus HKU1 Not Detected (NOT DETECT); Coronavirus NL63 Not Detected (NOT DETECT); Coronavirus OC43 Not Detected (NOT DETECT); Human Metapneumovirus Not Detected (NOT DETECT); Human Rhinovirus/Enterovirus Not Detected (NOT DETECT); Influenza A Not Detected (NOT DETECT); Influenza A/2009-H1 Not Detected (NOT DETECT); Influenza A/H1 Not Detected (NOT DETECT); Influenza A/H3 Not Detected (NOT DETECT); Influenza B Not Detected (NOT DETECT); Mycoplasma pneumoniae Not Detected (NOT DETECT); Parainfluenza Virus 1 Not Detected (NOT DETECT); Parainfluenza Virus 2 Not Detected (NOT DETECT); Parainfluenza Virus 3 Not Detected (NOT DETECT); Parainfluenza Virus 4 Not Detected (NOT DETECT); Respiratory Syncytial Virus Not Detected (NOT DETECT)
[2018-10-02 08:39] LABS: Troponin I 0.073 ng/mL (0.000-0.040)
--- NOTE | 2018-10-02 17:48 | NUR ---
PT HAS BEEN ALERT AND ORIENTED TO THE SITUATION, TIME, PLACE, AND PERSON, BUT HAS RANDOM BOUTS OF CONFUSION REGARDING THE SITUATION. SHE IS PLEASANT AND ABLE TO BE REORIENTED. PT WAS TAKEN OFF BIPAP MID MORNING AND HAS BEEN ON NC EVER SINCE. SHE STARTED AT 3L AND HAS BEEN TITRATED DOWN TO 1L, CURRENTLY AT 96%. PT'S LUNGS ARE DIMINISHED WITH CRACKLES THROUGHOUT. MEPILEX ON HEELS AND Q2 TURNS FOR PREVENTION. BED IN LOWEST POSITION, CALL LIGHT IN REACH, BED ALARM ON, PT ORIENTED TO SAFETY PROTOCOL.
[2018-10-03 03:52] LABS: BASOPHILS ABSOLUTE AUTO 0.06 K/mm3 (0.00-0.23); BASOPHILS PERCENT AUTO 1 % (0-2); EOSINOPHILS ABSOLUTE AUTO 0.01 K/mm3 (0.00-0.68); EOSINOPHILS PERCENT AUTO 0 % (0-6); Hematocrit 33.8 % (33.0-51.0); Hemoglobin 9.1 g/dL (11.5-16.0); IMMATURE GRAN ABSOLUTE AUTO 0.05 K/mm3 (0.00-0.10); IMMATURE GRAN PERCENT AUTO 1 % (0-1); LYMPHOCYTES ABSOLUTE AUTO 1.23 K/mm3 (0.84-5.20); LYMPHOCYTES PERCENT AUTO 11 % (21-46); MONOCYTES ABSOLUTE AUTO 1.06 K/mm3 (0.16-1.47); MONOCYTES PERCENT AUTO 10 % (4-13); Mean Corpuscular HGB 21.9 pg (26.0-34.0); Mean Corpuscular HGB Conc 26.9 g/dL (31.5-36.5); Mean Corpuscular Volume 81 fL (80-100); Mean Platelet Volume 9.9 fL (9.1-12.4); NEUTROPHILS ABSOLUTE AUTO 8.55 K/mm3 (1.96-9.15); NEUTROPHILS PERCENT AUTO 78 % (41-73); Platelet Count 249 K/mm3 (150-400); RDW Coefficient Variation 17.2 % (11.7-14.2); RDW Standard Deviation 51.1 fL (35.1-46.3); Red Blood Cell Count 4.16 M/mm3 (3.80-5.20); White Blood Cell Count 10.96 K/mm3 (4.00-11.30)
--- NOTE | 2018-10-03 03:53 | NUR ---
ASSUMED CARE OF PT AT 1900 FROM VIET MEDINA, AND DOMINIC MARTINEZ. PT IS CONFUSED AT TIMES, REDIRECTS EASILY; PT EXPRESSES FRUSTRATION W/ BIPAP ON BUT DESATS W/ NC; BIPAP OFF FOR SHORT AMOUNTS OF TIME FOR DRINKS AND SNACKS; PT COUGHS W/ FLUIDS BUT TOLERATES SOFT FOODS WELL; PO MEDS TAKEN W/ APPLESAUCE; REPOSITIONED FREQUENTLY; BED IN LOWEST POSITION; BED ALARM ON; CALL LIGHT W/IN REACH; WILL CONTINUE TO ASSESS AND MONITOR UNTIL HANDOFF TO DAYSHIFT RN.
[2018-10-03 04:08] LABS: Bun/Creatinine Ratio 23.6 (12.0-20.0); Calcium, Blood 7.4 mg/dL (8.5-10.1); Creatinine, Blood 1.1 mg/dL (0.40-1.00); Potassium, Blood 4.2 mmol/L (3.5-5.5)
--- NOTE | 2018-10-03 05:25 | NUR ---
BIPAP; PATIENT NEEDED FREQUENT ADJUSTMENT OF BIPAP; 18-20/8 30% FIO2; PATIENT NEEDS ENCOURAGEMENT TO BREATH AT TIMES; APPEARS APNIEC AT TIMES.
--- NOTE | 2018-10-03 16:50 | NUR ---
PT A&O X3, WITH BOUTS OF CONFUSION, OVERALL PT APPEARS TO MUCH MORE CLEAR TODAY. CALLING OUT IN THE FRENCH AT RANDOM INTERVALS, REQUESTING JUST TO TALK TO SOMEONE. APPETITE IMPROVING. PT IS STILL RESISTANT TO BIPAP, BUT IS WILLING TO WEAR IT WITH COAXING. PT HAD SLIGHT HEADACHE, TREATED WITH TYLENOL, OTHERWISE PAIN FREE. LUNG SOUNDS ARE CLEARING, BUT STILL HAVE CRACKLES IN THE BASES. BED IN LOWEST POSITION, CALL LIGHT IN REACH, BED ALARAM ON, PT ORIENTED TO SAFETY PRECAUTIONS.
[2018-10-04 03:52] LABS: Mean Corpuscular HGB 21.4 pg (26.0-34.0); Mean Corpuscular HGB Conc 26.5 g/dL (31.5-36.5); Mean Corpuscular Volume 81 fL (80-100); Platelet Count 242 K/mm3 (150-400); RDW Coefficient Variation 17.3 % (11.7-14.2); RDW Standard Deviation 50.9 fL (35.1-46.3); White Blood Cell Count 11.12 K/mm3 (4.00-11.30)
[2018-10-04 04:08] LABS: Bun/Creatinine Ratio 25.5 (12.0-20.0); Calcium, Blood 7.5 mg/dL (8.5-10.1); Creatinine, Blood 1.02 mg/dL (0.40-1.00); Potassium, Blood 3.8 mmol/L (3.5-5.5)
--- NOTE | 2018-10-04 05:54 | NUR ---
PT CALLED OUT TO HALLWAY FOR HELP AND STATED SHE WAS "FRIGHTENED"; REQUESTED BIPAP BE REMOVED AND NC WAS PLACED BACK ON; SHE STATED SHE "FELT FUNNY"; UPON QUESTIONING SHE SAID, "I DON'T KNOW. A LOT GOING ON AND I'M CAUGHT IN THE MIDDLE OF IT, AND I DON'T LIKE BEING CAUGHT IN THE MIDDLE. I DON'T KNOW WHY I FEEL FUNNY"; SAT WITH PT AND REASSURED HER; O2 SATS WERE IN 90'S W/ NC IN MOUTH; WILL CONTINUE TO MONITOR AND ASSESS UNTIL HANDOFF.
--- NOTE | 2018-10-04 06:34 | NUR ---
ASSUMED CARE FROM CAROL LLANOS AND SN DOMINIC AT APPROXIMATELY 1900. PT HAS NC IN MOUTH TO MAINTAIN SATS WHILE OFF BIPAP. SHE IS ANXIOUS TO DISCHARGE; SEEMS LONELY AT TIMES; PT ENJOYS EATING PUDDING A SNACK AND TOLERATES WELL; ASSISTANCE WITH DRINK AND REMINDED TO TAKE SMALL SIPS AT A TIME PT COUGHS AFTER DRINK; PT UTILIZED BIPAP FOR SHORT AMOUNT OF TIME AND C/O OF DISCOMFORT AND REQUESTED TO USE NC FOR NAP; BED IN LOWEST POSITION, CALL LIGHT WITHIN REACH; BED ALARM ON; WILL CONTINUE TO MONITOR AND ASSESS UNTIL HANDOFF TO DAY SHIFT RN.
--- NOTE | 2018-10-04 17:23 | NUR ---
SHIFT SUMMARY PT HAS BEEN OFF BIPAP FOR ALMOST THE WHOLE DAY, RESPONDING WELL WITH 2-3L NC AT 95%. PT HAS BEEN A&0 X3 WITH BOUTS OF CONFUSION, BUT HAS BEEN PLEASANT. PT HAS 1 MEDIUM BM TODAY, WOODARD WAS REMOVED AT 1310, NO VOID YET. PT HAS HAD Q2 TURNS, RED BUTTOCKS WITH MEPILEX AND PREVENTATIVE MEPILEX ON HEELS. LUNGS ARE CLEAR WITH VERY FINE CRACKLES IN BASES. TELE HAS BEEN NSR 70'S. CALL LIGHT IN REACH, BED IN LOWEST POSITION, PT ORIENTED TO FALL PREVENTION, AND BED ALARM ON.
[2018-10-05 04:13] LABS: Hematocrit 33.8 % (33.0-51.0); Hemoglobin 9.2 g/dL (11.5-16.0); Mean Corpuscular HGB 21.4 pg (26.0-34.0); Mean Corpuscular HGB Conc 27.2 g/dL (31.5-36.5); Mean Corpuscular Volume 79 fL (80-100); Mean Platelet Volume 9.9 fL (9.1-12.4); Platelet Count 238 K/mm3 (150-400); RDW Coefficient Variation 17.6 % (11.7-14.2); RDW Standard Deviation 49.7 fL (35.1-46.3); Red Blood Cell Count 4.29 M/mm3 (3.80-5.20); White Blood Cell Count 10.97 K/mm3 (4.00-11.30)
[2018-10-05 04:32] LABS: Anion Gap 4 mmol/L (6-16); Blood Urea Nitrogen 21 mg/dL (8-24); Bun/Creatinine Ratio 25.3 (12.0-20.0); CO2, Blood 38 mmol/L (21-32); Calcium, Blood 7.6 mg/dL (8.5-10.1); Chloride, Blood 99 mmol/L (98-108); Creatinine, Blood 0.83 mg/dL (0.40-1.00); Glomerular Filtration Rate >60 (60-); Glucose, Blood 89 mg/dL (70-99); Potassium, Blood 3.4 mmol/L (3.5-5.5); Sodium, Blood 141 mmol/L (136-145)
[2018-10-05 04:58] LABS: PCO2 Arterial 65.4 mmHg (35-45); pH Blood Arterial 7.41 (7.35-7.45)
[2018-10-05 04:59] LABS: PO2 Arterial 64.3 mmHg (80-100)
--- NOTE | 2018-10-05 05:45 | NUR ---
SHIFT SUMMARY PT SLEEPING IN ROOM COMFORTABLY. NO ACUTE CHANGES IN STATUS OVERNIGHT. PT SLEPT WELL T/O NIGHT. HAD ONE EPISODE OF INCONTINENCE. PT FILLED DEPENDS AND LINEN WAS CHANGED. NEW MEPILEX TO COCCYX FOR PREVENTATIVE BREAKDOWN. RESP EVEN UNLABORED ON 2L O2 W/ SATS >92%. PT BUMPED TO 2L O2 WHILE SLEEPING D/T LOW O2 SATS. PT DID WEAR BIPAP MASK FOR 45 MIN SPAN DURING NIGHT BEFORE PULLING MASK OFF. PT HAD MOMENTS OF CONFUSION T/O NIGHT AND WAS EASILY REDIRECTABLE. PT WAS TURNED Q2HRS FOR PREVENTION OF PRESSURE ULCER. CALL LIGHT IN REACH.
--- NOTE | 2018-10-05 14:45 | NUR ---
1430 PT TRANSFERED FROM PCU TO MEDICAL FLOOR. REPORT RECIEVED FROM ERLINDA QUINN RN PRIOR TO TRANSFER.
--- NOTE | 2018-10-05 15:12 | NUR ---
BEGINNING OF SHIFT - TRANSFER TO MEDICAL FLOOR Assumed care of pt at 0700. Report recieved from Ceci MEDINA. Pt on 2 LPM NC. Shift assessment completed. AM meds given whole in applesauce. Pt tolerated this well. Protective dressing to sacrum removed during shift assessment. Skin underneath was damp and excoriated. Area left open to air. Liz area cleaned. Pt is incontinent of urine and stool. Repositioned Q2H, or more often as pt required frequent attends changes. Pt transferred to room 301 at 1435. Telephone report given to Rajesh MEDINA. Pt remained in same bed for transfer to medical floor. Chart, belonings, and medications transferred with patient.
--- NOTE | 2018-10-05 15:56 | NUR ---
Met with patient she is alsert and asking some questions. denies discomfort, pain or dyspnea. she struggles with her neck not wanting to pull to right. assessment not tightness noted good arm movement. Nursing in and postitioned her for more support. Copy of POLST obtained by nursing from [facility]. Pt back to full code. Pat admission pt very ill and on comfort care. Pt recovered and back to full treatment. Pt being managed by doctor Yony and Dr. Osman. He miguelangel is in nursing and manages her care. Pt's nurse states he spoke to atilio who is coming in today. Review strategies for plan of care.
--- NOTE | 2018-10-05 18:31 | NUR ---
SHIFT SUMMARY. PT HAS DENIED PAIN, SOB, N/V SINCE CARE WAS ASSUMED. GOOD MEAL INTAKE AT [facility]. PT'S HEAD KEEPS DRIFTING TO THE RIGHT, REPOSITIONED SEVERAL TIMES WITH PILLOWS. NO FAMILY AT BEDSIDE. POSSIBLE D/C TO [facility] TOMORROW PER MD NOTE.
--- NOTE | 2018-10-06 04:44 | NUR ---
Shift summary. Pt undergoing a sleep study last pm. Pt able to sleep most of night. See respiratory therapy note. Pt repositioned x 2 last pm means she was on sleep study. No c/o discomfort.
[2018-10-06 05:56] LABS: Anion Gap 1 mmol/L (6-16); Blood Urea Nitrogen 23 mg/dL (8-24); Bun/Creatinine Ratio 25.1 (12.0-20.0); CO2, Blood 39 mmol/L (21-32); Calcium, Blood 7.8 mg/dL (8.5-10.1); Chloride, Blood 101 mmol/L (98-108); Creatinine, Blood 0.92 mg/dL (0.40-1.00); Glomerular Filtration Rate >60 (60-); Glucose, Blood 108 mg/dL (70-99); Potassium, Blood 4.3 mmol/L (3.5-5.5); Sodium, Blood 141 mmol/L (136-145)
--- NOTE | 2018-10-06 09:08 | NUR ---
SHE HAS BEEN CALLING OUT INTERMITTENTLY FOR US. SHE HAS QUESTIONS ABOUT WHAT WILL BE HAPPENING TODAY AND HOW LONG HAS SHE BEEN HERE, ETC. SHE ATE BREAKFAST WELL. NO COMPLAINTS EXCEPT FOR LONG NAILS THAT NEED ATTENTION. HEELS ARE FLOATED. FOAM DRESSINGS ON BOTH. SHE IS UNAWARE OF ANY HEEL WOUNDS. WILL FIND OUT.
--- NOTE | 2018-10-06 10:44 | NUR ---
SHE IS RESTING AFTER PERICARE AND A LINEN CHANGE. SHE HAD A LARGE INCONTINENT URINE. FOAMS ON HEELS REMOVED. NO HEEL WOUNDS. HEELS FLOATED. SHE IS PLEASANTLY CONFUSED.
--- NOTE | 2018-10-06 16:25 | NUR ---
TORY AND SINAN HAVE BEEN DC'D. SRAVAN IS READY. WAITING FOR A PICK-UP TIME. O2 SHAINA HAS BEEN DC'D BECAUSE SHE HAS O2 AT [facility] ALREADY. IVANA TORRES RN TOLD THAT SHE ALREADY HAS O2 AT HOME.
--- NOTE | 2018-10-06 16:40 | NUR ---
SHE HAS BEEN CHANGED FOR LARGE AMTS OF URINE FREQUENTLY TODAY. SHE IS READY FOR DISCHARGE. HER PACKET IS HERE AND RIDE SHOULD BE HERE ANY MINUTE. SHE HAS BEEN IMPATIENT ALL DAY WAITING TO BE DISCHARGED.
--- NOTE | 2018-10-06 16:51 | NUR ---
DC'D TO [facility] WITH PACKET AT 1650. WE USED THE LIFT TO GET HER INTO THE W/C. SHE IS WEARING 3L O2. REPORT CALLED.
[2018-10-06] MEDS ORDERED: CEFP200 PO (18:01)
== END 2018-10-06 16:50 | DRG 871 ==
LOC: ER 22:53 → MEDS 10-02 01:41 → PCU 10-02 01:41 → MEDS 10-05 14:28
PROVIDERS: Emergency Medicine; Internal Medicine; ADMIT Internal Medicine
PROC: 5A09357 Assistance with Respiratory Ventilation, Less than 24 Consecutive Hours, Continuous Positive Airway Pressure (ICD-10-PCS; principal; 2018-10-02)
DX: A41.9 Sepsis, unspecified organism (principal); J96.01 Acute respiratory failure with hypoxia; I26.99 Other pulmonary embolism without acute cor pulmonale; G93.41 Metabolic encephalopathy; I13.0 Hypertensive heart and chronic kidney disease with heart failure and stage 1 through stage 4 chronic kidney disease, or unspecified chronic kidney disease; I50.32 Chronic diastolic (congestive) heart failure; N39.0 Urinary tract infection, site not specified; E66.2 Morbid (severe) obesity with alveolar hypoventilation; Z51.5 Encounter for palliative care; N18.3 Chronic kidney disease, stage 3 (moderate); J44.9 Chronic obstructive pulmonary disease, unspecified; F03.90 Unspecified dementia, unspecified severity, without behavioral disturbance, psychotic disturbance, mood disturbance, and anxiety; G40.909 Epilepsy, unspecified, not intractable, without status epilepticus; Z79.01 Long term (current) use of anticoagulants; R26.89 Other abnormalities of gait and mobility; Z86.711 Personal history of pulmonary embolism; G47.33 Obstructive sleep apnea (adult) (pediatric); Z86.12 Personal history of poliomyelitis; F32.9 Major depressive disorder, single episode, unspecified; I73.9 Peripheral vascular disease, unspecified; E78.5 Hyperlipidemia, unspecified; K21.9 Gastro-esophageal reflux disease without esophagitis; Z68.31 Body mass index [BMI] 31.0-31.9, adult
CPT/HCPCS: 36415; 36600; 51702; 71045; 80048; 80053; 81001; 82550; 82803; 83605; 83880; 84145; 84484; 85025; 85027; 87040; 87086; 87486; 87581; 87633; 87798; 93005; 93010; 93970; 94640; 94660; 94760; 94762; 96361-59; 96365-59; 96375-59; 99285-25; A9270-GY; J0692; J0696; J1650; J2310; J2405; J3370; J7030; J7050

== ENCOUNTER 2018-11-09 12:58 | Inpatient (IN) | payer OTHER ==
[~2018-11-09] VITALS: Ht 162.6 cm; Wt 76.5 kg
[~2018-11-09 12:58] MED LIST changes: +CEFP200 PO; +COMBIVENT RESPIM4 GM; +Procrit40000 UNIT IM
[2018-11-09 14:26] LABS: Hematocrit 37.2 % (33.0-51.0); Mean Corpuscular HGB 21.2 pg (26.0-34.0); Mean Corpuscular HGB Conc 26.9 g/dL (31.5-36.5); Mean Platelet Volume 10.1 fL (9.1-12.4); Platelet Count 481 K/mm3 (150-400); RDW Coefficient Variation 18.3 % (11.7-14.2); RDW Standard Deviation 51.7 fL (35.1-46.3); Red Blood Cell Count 4.72 M/mm3 (3.80-5.20)
[2018-11-09 14:27] LABS: Mean Corpuscular Volume 79 fL (80-100)
[2018-11-09] MEDS ORDERED: BUME1 PO (14:28)
[2018-11-09] MEDS ORDERED: DOCU100 PO (14:31)
[2018-11-09] MEDS ORDERED: Zocor20 MG PO (14:34)
[2018-11-09] MEDS ORDERED: CRANBERRY450 M1 PO (14:36)
[2018-11-09] MEDS ORDERED: COMBIVENT RESPIM4 GM INH (14:38)
[2018-11-09] MEDS ORDERED: Laxative Suppos10 MG PR (14:39)
[2018-11-09] MEDS ORDERED: ONDA4ODT PO (14:40)
[2018-11-09] MEDS ORDERED: ADULT TUSS100 MG/5 M PO (14:40)
[2018-11-09 14:49] LABS: Albumin, Blood 3.2 g/dL (3.4-5.0); Bilirubin, Total 0.4 mg/dL (0.1-1.0); Calcium, Blood 9.2 mg/dL (8.5-10.1); Creatinine, Blood 1.13 mg/dL (0.40-1.00); Globulin, Blood 3.3 g/dL (2.2-4.0); Potassium, Blood 4.5 mmol/L (3.5-5.5); Total Protein, Blood 6.5 g/dL (6.4-8.2)
[2018-11-09 20:29] LABS: Albumin, Blood 2.8 g/dL (3.4-5.0); Anion Gap 7 mmol/L (6-16); Blood Urea Nitrogen 25 mg/dL (8-24); Bun/Creatinine Ratio 22.7 (12.0-20.0); CO2, Blood 29 mmol/L (21-32); Calcium, Blood 8.5 mg/dL (8.5-10.1); Chloride, Blood 101 mmol/L (98-108); Glomerular Filtration Rate 50 (60-); Glucose, Blood 125 mg/dL (70-99); Potassium, Blood 5.2 mmol/L (3.5-5.5); Sodium, Blood 137 mmol/L (136-145)
[2018-11-10] MEDS ORDERED: CHOL10002 PO (01:49)
[2018-11-10 02:59] LABS: Hematocrit 35.4 % (33.0-51.0); Hemoglobin 10.4 g/dL (11.5-16.0)
[2018-11-10 03:02] LABS: Bun/Creatinine Ratio 23.6 (12.0-20.0); Calcium, Blood 8.1 mg/dL (8.5-10.1); Creatinine, Blood 1.06 mg/dL (0.40-1.00); Magnesium, Blood 2.1 mg/dL (1.6-2.4); Potassium, Blood 4.7 mmol/L (3.5-5.5)
[2018-11-10 03:03] LABS: BASOPHILS ABSOLUTE AUTO 0.09 K/mm3 (0.00-0.23); BASOPHILS PERCENT AUTO 1 % (0-2); EOSINOPHILS ABSOLUTE AUTO 0.01 K/mm3 (0.00-0.68); EOSINOPHILS PERCENT AUTO 0 % (0-6); Hematocrit 35.3 % (33.0-51.0); Hemoglobin 10.4 g/dL (11.5-16.0); IMMATURE GRAN ABSOLUTE AUTO 0.07 K/mm3 (0.00-0.10); IMMATURE GRAN PERCENT AUTO 0 % (0-1); LYMPHOCYTES ABSOLUTE AUTO 1.21 K/mm3 (0.84-5.20); LYMPHOCYTES PERCENT AUTO 8 % (21-46); MONOCYTES ABSOLUTE AUTO 1.36 K/mm3 (0.16-1.47); MONOCYTES PERCENT AUTO 8 % (4-13); Mean Corpuscular HGB Conc 29.5 g/dL (31.5-36.5); Mean Platelet Volume 9.7 fL (9.1-12.4); NEUTROPHILS ABSOLUTE AUTO 13.49 K/mm3 (1.96-9.15); NEUTROPHILS PERCENT AUTO 83 % (41-73); Platelet Count 288 K/mm3 (150-400); RDW Coefficient Variation 18.6 % (11.7-14.2); RDW Standard Deviation 58.1 fL (35.1-46.3); Red Blood Cell Count 4.16 M/mm3 (3.80-5.20); White Blood Cell Count 16.23 K/mm3 (4.00-11.30)
[2018-11-10 03:07] LABS: Mean Corpuscular Volume 85 fL (80-100)
[2018-11-10 12:15] LABS: Hematocrit 32.4 % (33.0-51.0); Hemoglobin 9.6 g/dL (11.5-16.0)
[2018-11-11 04:25] LABS: BASOPHILS ABSOLUTE AUTO 0.05 K/mm3 (0.00-0.23); BASOPHILS PERCENT AUTO 0 % (0-2); EOSINOPHILS ABSOLUTE AUTO 0.01 K/mm3 (0.00-0.68); EOSINOPHILS PERCENT AUTO 0 % (0-6); Hematocrit 28.5 % (33.0-51.0); Hemoglobin 8.1 g/dL (11.5-16.0); IMMATURE GRAN PERCENT AUTO 1 % (0-1); LYMPHOCYTES ABSOLUTE AUTO 0.77 K/mm3 (0.84-5.20); LYMPHOCYTES PERCENT AUTO 7 % (21-46); MONOCYTES ABSOLUTE AUTO 1.33 K/mm3 (0.16-1.47); MONOCYTES PERCENT AUTO 12 % (4-13); Mean Corpuscular HGB 24.5 pg (26.0-34.0); Mean Corpuscular HGB Conc 28.4 g/dL (31.5-36.5); Mean Corpuscular Volume 86 fL (80-100); Mean Platelet Volume 9.8 fL (9.1-12.4); NEUTROPHILS ABSOLUTE AUTO 8.92 K/mm3 (1.96-9.15); NEUTROPHILS PERCENT AUTO 80 % (41-73); Platelet Count 238 K/mm3 (150-400); RDW Coefficient Variation 19.2 % (11.7-14.2); RDW Standard Deviation 60.3 fL (35.1-46.3); White Blood Cell Count 11.18 K/mm3 (4.00-11.30)
[2018-11-11 04:45] LABS: Albumin, Blood 2.7 g/dL (3.4-5.0); Anion Gap 2 mmol/L (6-16); Blood Urea Nitrogen 20 mg/dL (8-24); Bun/Creatinine Ratio 19.8 (12.0-20.0); CO2, Blood 34 mmol/L (21-32); Calcium, Blood 7.7 mg/dL (8.5-10.1); Chloride, Blood 104 mmol/L (98-108); Creatinine, Blood 1.01 mg/dL (0.40-1.00); Glomerular Filtration Rate 55 (60-); Glucose, Blood 110 mg/dL (70-99); Phosphorus, Blood 3.1 mg/dL (2.5-4.9); Potassium, Blood 4.6 mmol/L (3.5-5.5); Sodium, Blood 140 mmol/L (136-145)
[2018-11-11 04:50] LABS: Vancomycin, Trough 16.3 ug/mL (5.0-10.0)
[2018-11-11 12:27] LABS: Hematocrit 27.9 % (33.0-51.0); Hemoglobin 7.8 g/dL (11.5-16.0)
[2018-11-11 20:05] LABS: Hematocrit 31.3 % (33.0-51.0); Hemoglobin 9.1 g/dL (11.5-16.0)
[2018-11-12 04:34] LABS: BASOPHILS ABSOLUTE AUTO 0.05 K/mm3 (0.00-0.23); BASOPHILS PERCENT AUTO 0 % (0-2); EOSINOPHILS ABSOLUTE AUTO 0.01 K/mm3 (0.00-0.68); EOSINOPHILS PERCENT AUTO 0 % (0-6); Hematocrit 30.2 % (33.0-51.0); Hemoglobin 8.9 g/dL (11.5-16.0); IMMATURE GRAN PERCENT AUTO 1 % (0-1); LYMPHOCYTES ABSOLUTE AUTO 0.78 K/mm3 (0.84-5.20); LYMPHOCYTES PERCENT AUTO 6 % (21-46); MONOCYTES ABSOLUTE AUTO 1.27 K/mm3 (0.16-1.47); MONOCYTES PERCENT AUTO 10 % (4-13); Mean Corpuscular HGB 25.9 pg (26.0-34.0); Mean Corpuscular HGB Conc 29.5 g/dL (31.5-36.5); Mean Corpuscular Volume 88 fL (80-100); Mean Platelet Volume 9.6 fL (9.1-12.4); NEUTROPHILS PERCENT AUTO 83 % (41-73); Platelet Count 216 K/mm3 (150-400); RDW Coefficient Variation 18.8 % (11.7-14.2); RDW Standard Deviation 61.3 fL (35.1-46.3); Red Blood Cell Count 3.43 M/mm3 (3.80-5.20); White Blood Cell Count 13.11 K/mm3 (4.00-11.30)
[2018-11-12 04:52] LABS: Albumin, Blood 2.6 g/dL (3.4-5.0); Anion Gap 3 mmol/L (6-16); Blood Urea Nitrogen 18 mg/dL (8-24); Bun/Creatinine Ratio 19.2 (12.0-20.0); CO2, Blood 33 mmol/L (21-32); Calcium, Blood 8.3 mg/dL (8.5-10.1); Chloride, Blood 104 mmol/L (98-108); Creatinine, Blood 0.94 mg/dL (0.40-1.00); Glomerular Filtration Rate >60 (60-); Glucose, Blood 102 mg/dL (70-99); Phosphorus, Blood 2.8 mg/dL (2.5-4.9); Potassium, Blood 4.8 mmol/L (3.5-5.5); Sodium, Blood 140 mmol/L (136-145)
[2018-11-12 09:53] LABS: PCO2 Arterial 62.7 mmHg (35-45); PO2 Arterial 71.6 mmHg (80-100); pH Blood Arterial 7.35 (7.35-7.45)
[2018-11-13 04:22] LABS: BASOPHILS ABSOLUTE AUTO 0.05 K/mm3 (0.00-0.23); BASOPHILS PERCENT AUTO 0 % (0-2); EOSINOPHILS ABSOLUTE AUTO 0.01 K/mm3 (0.00-0.68); EOSINOPHILS PERCENT AUTO 0 % (0-6); Hematocrit 29.1 % (33.0-51.0); Hemoglobin 8.5 g/dL (11.5-16.0); IMMATURE GRAN ABSOLUTE AUTO 0.07 K/mm3 (0.00-0.10); IMMATURE GRAN PERCENT AUTO 1 % (0-1); LYMPHOCYTES ABSOLUTE AUTO 0.85 K/mm3 (0.84-5.20); LYMPHOCYTES PERCENT AUTO 7 % (21-46); MONOCYTES ABSOLUTE AUTO 1.19 K/mm3 (0.16-1.47); MONOCYTES PERCENT AUTO 10 % (4-13); Mean Corpuscular HGB 26.2 pg (26.0-34.0); Mean Corpuscular HGB Conc 29.2 g/dL (31.5-36.5); Mean Corpuscular Volume 90 fL (80-100); Mean Platelet Volume 9.6 fL (9.1-12.4); NEUTROPHILS PERCENT AUTO 83 % (41-73); NRBC ABSOLUTE 0.02 K/mm3 (0.00-0.02); NRBC Auto 0.2 /100 WBC (0.0-0.2); Platelet Count 230 K/mm3 (150-400); RDW Coefficient Variation 19.7 % (11.7-14.2); RDW Standard Deviation 63.7 fL (35.1-46.3); Red Blood Cell Count 3.25 M/mm3 (3.80-5.20); White Blood Cell Count 12.57 K/mm3 (4.00-11.30)
[2018-11-13 04:39] LABS: Albumin, Blood 2.6 g/dL (3.4-5.0); Anion Gap 2 mmol/L (6-16); Blood Urea Nitrogen 18 mg/dL (8-24); CO2, Blood 35 mmol/L (21-32); Calcium, Blood 8.5 mg/dL (8.5-10.1); Chloride, Blood 103 mmol/L (98-108); Glomerular Filtration Rate >60 (60-); Glucose, Blood 92 mg/dL (70-99); Phosphorus, Blood 2.6 mg/dL (2.5-4.9); Potassium, Blood 4.5 mmol/L (3.5-5.5); Sodium, Blood 140 mmol/L (136-145)
[2018-11-13 16:43] LABS: Vancomycin, Trough 13.8 ug/mL (5.0-10.0)
[2018-11-14 05:30] LABS: BASOPHILS ABSOLUTE AUTO 0.04 K/mm3 (0.00-0.23); BASOPHILS PERCENT AUTO 0 % (0-2); EOSINOPHILS ABSOLUTE AUTO 0.03 K/mm3 (0.00-0.68); EOSINOPHILS PERCENT AUTO 0 % (0-6); Hematocrit 29.7 % (33.0-51.0); Hemoglobin 8.6 g/dL (11.5-16.0); IMMATURE GRAN ABSOLUTE AUTO 0.07 K/mm3 (0.00-0.10); IMMATURE GRAN PERCENT AUTO 1 % (0-1); LYMPHOCYTES ABSOLUTE AUTO 0.74 K/mm3 (0.84-5.20); LYMPHOCYTES PERCENT AUTO 6 % (21-46); MONOCYTES ABSOLUTE AUTO 1.13 K/mm3 (0.16-1.47); MONOCYTES PERCENT AUTO 9 % (4-13); Mean Corpuscular HGB 26.1 pg (26.0-34.0); Mean Corpuscular Volume 90 fL (80-100); Mean Platelet Volume 9.7 fL (9.1-12.4); NEUTROPHILS ABSOLUTE AUTO 10.26 K/mm3 (1.96-9.15); NEUTROPHILS PERCENT AUTO 84 % (41-73); NRBC ABSOLUTE 0.02 K/mm3 (0.00-0.02); NRBC Auto 0.2 /100 WBC (0.0-0.2); Platelet Count 232 K/mm3 (150-400); RDW Coefficient Variation 20.1 % (11.7-14.2); RDW Standard Deviation 66.4 fL (35.1-46.3); Red Blood Cell Count 3.29 M/mm3 (3.80-5.20); White Blood Cell Count 12.27 K/mm3 (4.00-11.30)
[2018-11-14 05:51] LABS: Albumin, Blood 2.6 g/dL (3.4-5.0); Anion Gap 3 mmol/L (6-16); Blood Urea Nitrogen 15 mg/dL (8-24); Bun/Creatinine Ratio 18.3 (12.0-20.0); CO2, Blood 35 mmol/L (21-32); Calcium, Blood 8.7 mg/dL (8.5-10.1); Chloride, Blood 101 mmol/L (98-108); Creatinine, Blood 0.82 mg/dL (0.40-1.00); Glomerular Filtration Rate >60 (60-); Glucose, Blood 93 mg/dL (70-99); Phosphorus, Blood 2.9 mg/dL (2.5-4.9); Potassium, Blood 4.6 mmol/L (3.5-5.5); Sodium, Blood 139 mmol/L (136-145)
[2018-11-15 04:06] LABS: Hemoglobin 8.7 g/dL (11.5-16.0); Mean Corpuscular HGB 25.7 pg (26.0-34.0); Mean Corpuscular Volume 89 fL (80-100); Mean Platelet Volume 9.9 fL (9.1-12.4); Platelet Count 243 K/mm3 (150-400); RDW Coefficient Variation 20.5 % (11.7-14.2); RDW Standard Deviation 65.4 fL (35.1-46.3); Red Blood Cell Count 3.39 M/mm3 (3.80-5.20); White Blood Cell Count 10.78 K/mm3 (4.00-11.30)
[2018-11-15 04:25] LABS: BAND PERCENT MAN 9 % (0-8); BASOPHILS PERCENT MAN 0 % (0-2); EOSINOPHILS PERCENT MAN 0 % (0-6); LYMPHOCYTES ABSOLUTE MAN 0.64 K/mm3 (0.84-5.20); LYMPHOCYTES PERCENT MAN 6 % (21-46); MONOCYTES ABSOLUTE MAN 0.32 K/mm3 (0.16-1.47); MONOCYTES PERCENT MAN 3 % (4-13); MYELOCYTE PERCENT MAN 1 % (0-0); SEG NEUTROPHILS PERCENT MAN 81 % (41-73); TOTAL CELLS COUNTED 100
[2018-11-15 04:31] LABS: Alanine Aminotransfer (ALT/SGP 9 U/L (12-78); Albumin, Blood 2.5 g/dL (3.4-5.0); Albumin/Globulin Ratio 0.8 (0.8-1.8); Alk Phos 54 U/L (50-136); Anion Gap 4 mmol/L (6-16); Aspartate Aminotrans (AST/SGOT 11 U/L (12-37); Bilirubin, Total 0.4 mg/dL (0.1-1.0); Blood Urea Nitrogen 14 mg/dL (8-24); Bun/Creatinine Ratio 17.3 (12.0-20.0); CO2, Blood 36 mmol/L (21-32); Calcium, Blood 8.7 mg/dL (8.5-10.1); Chloride, Blood 100 mmol/L (98-108); Creatinine, Blood 0.81 mg/dL (0.40-1.00); Glomerular Filtration Rate >60 (60-); Glucose, Blood 85 mg/dL (70-99); Potassium, Blood 4.1 mmol/L (3.5-5.5); Sodium, Blood 140 mmol/L (136-145); Total Protein, Blood 5.5 g/dL (6.4-8.2)
[2018-11-16 04:06] LABS: BASOPHILS ABSOLUTE AUTO 0.04 K/mm3 (0.00-0.23); BASOPHILS PERCENT AUTO 0 % (0-2); EOSINOPHILS ABSOLUTE AUTO 0.02 K/mm3 (0.00-0.68); EOSINOPHILS PERCENT AUTO 0 % (0-6); Hematocrit 28.2 % (33.0-51.0); Hemoglobin 8.2 g/dL (11.5-16.0); IMMATURE GRAN ABSOLUTE AUTO 0.06 K/mm3 (0.00-0.10); IMMATURE GRAN PERCENT AUTO 1 % (0-1); LYMPHOCYTES ABSOLUTE AUTO 0.96 K/mm3 (0.84-5.20); LYMPHOCYTES PERCENT AUTO 10 % (21-46); MONOCYTES ABSOLUTE AUTO 0.93 K/mm3 (0.16-1.47); MONOCYTES PERCENT AUTO 9 % (4-13); Mean Corpuscular HGB 25.8 pg (26.0-34.0); Mean Corpuscular HGB Conc 29.1 g/dL (31.5-36.5); Mean Corpuscular Volume 89 fL (80-100); Mean Platelet Volume 9.6 fL (9.1-12.4); NEUTROPHILS ABSOLUTE AUTO 7.95 K/mm3 (1.96-9.15); NEUTROPHILS PERCENT AUTO 80 % (41-73); Platelet Count 250 K/mm3 (150-400); RDW Coefficient Variation 20.6 % (11.7-14.2); RDW Standard Deviation 66.7 fL (35.1-46.3); Red Blood Cell Count 3.18 M/mm3 (3.80-5.20); White Blood Cell Count 9.96 K/mm3 (4.00-11.30)
[2018-11-16 04:30] LABS: Albumin, Blood 2.3 g/dL (3.4-5.0); Albumin/Globulin Ratio 0.9 (0.8-1.8); Bilirubin, Total 0.5 mg/dL (0.1-1.0); Bun/Creatinine Ratio 13.7 (12.0-20.0); Calcium, Blood 8.6 mg/dL (8.5-10.1); Creatinine, Blood 1.17 mg/dL (0.40-1.00); Globulin, Blood 2.7 g/dL (2.2-4.0); Potassium, Blood 3.9 mmol/L (3.5-5.5)
[2018-11-17 03:53] LABS: BASOPHILS ABSOLUTE AUTO 0.05 K/mm3 (0.00-0.23); BASOPHILS PERCENT AUTO 0 % (0-2); EOSINOPHILS ABSOLUTE AUTO 0.06 K/mm3 (0.00-0.68); EOSINOPHILS PERCENT AUTO 1 % (0-6); Hematocrit 30.5 % (33.0-51.0); Hemoglobin 8.5 g/dL (11.5-16.0); IMMATURE GRAN ABSOLUTE AUTO 0.06 K/mm3 (0.00-0.10); IMMATURE GRAN PERCENT AUTO 1 % (0-1); LYMPHOCYTES ABSOLUTE AUTO 0.81 K/mm3 (0.84-5.20); LYMPHOCYTES PERCENT AUTO 7 % (21-46); MONOCYTES ABSOLUTE AUTO 1.12 K/mm3 (0.16-1.47); MONOCYTES PERCENT AUTO 10 % (4-13); Mean Corpuscular HGB 24.7 pg (26.0-34.0); Mean Corpuscular HGB Conc 27.9 g/dL (31.5-36.5); Mean Corpuscular Volume 89 fL (80-100); Mean Platelet Volume 9.5 fL (9.1-12.4); NEUTROPHILS ABSOLUTE AUTO 9.56 K/mm3 (1.96-9.15); NEUTROPHILS PERCENT AUTO 82 % (41-73); Platelet Count 253 K/mm3 (150-400); RDW Coefficient Variation 20.8 % (11.7-14.2); RDW Standard Deviation 67.2 fL (35.1-46.3); Red Blood Cell Count 3.44 M/mm3 (3.80-5.20); White Blood Cell Count 11.66 K/mm3 (4.00-11.30)
[2018-11-17 04:11] LABS: Albumin, Blood 2.5 g/dL (3.4-5.0); Albumin/Globulin Ratio 0.9 (0.8-1.8); Bilirubin, Total 0.4 mg/dL (0.1-1.0); Bun/Creatinine Ratio 15.5 (12.0-20.0); Calcium, Blood 9.2 mg/dL (8.5-10.1); Creatinine, Blood 1.03 mg/dL (0.40-1.00); Globulin, Blood 2.8 g/dL (2.2-4.0); Potassium, Blood 4.5 mmol/L (3.5-5.5); Total Protein, Blood 5.3 g/dL (6.4-8.2)
[2018-11-18 05:04] LABS: PCO2 Arterial 60.9 mmHg (35-45); PO2 Arterial 58.4 mmHg (80-100); pH Blood Arterial 7.43 (7.35-7.45)
[2018-11-18 08:31] LABS: PCO2 Arterial 62.1 mmHg (35-45); PO2 Arterial 56.8 mmHg (80-100); pH Blood Arterial 7.42 (7.35-7.45)
[2018-11-18 14:56] LABS: PCO2 Arterial 58.3 mmHg (35-45); PO2 Arterial 61.2 mmHg (80-100); pH Blood Arterial 7.44 (7.35-7.45)
== END 2018-11-18 16:30 | DRG 604 ==
LOC: ER 12:58 → SURS 15:42 → ICUE 15:42 → PCU 15:42 → ICUE 17:59 → PCU 11-10 21:12
PROVIDERS: Internal Medicine; Orthopaedic Surgery; Physician Assistant; ADMIT Family Medicine
PROC: 0JCN3ZZ Extirpation of Matter from Right Lower Leg Subcutaneous Tissue and Fascia, Percutaneous Approach (ICD-10-PCS; principal; 2018-11-09 16:00)
PROC: 30233N1 Transfusion of Nonautologous Red Blood Cells into Peripheral Vein, Percutaneous Approach (ICD-10-PCS; 2018-11-13)
DX: S80.11XA Contusion of right lower leg, initial encounter (principal); J96.01 Acute respiratory failure with hypoxia; J96.02 Acute respiratory failure with hypercapnia; N17.9 Acute kidney failure, unspecified; D62 Acute posthemorrhagic anemia; D68.32 Hemorrhagic disorder due to extrinsic circulating anticoagulants; I13.0 Hypertensive heart and chronic kidney disease with heart failure and stage 1 through stage 4 chronic kidney disease, or unspecified chronic kidney disease; I50.32 Chronic diastolic (congestive) heart failure; D47.3 Essential (hemorrhagic) thrombocythemia; J44.9 Chronic obstructive pulmonary disease, unspecified; R56.9 Unspecified convulsions; K21.9 Gastro-esophageal reflux disease without esophagitis; N18.3 Chronic kidney disease, stage 3 (moderate); F03.90 Unspecified dementia, unspecified severity, without behavioral disturbance, psychotic disturbance, mood disturbance, and anxiety; F32.9 Major depressive disorder, single episode, unspecified; Z86.711 Personal history of pulmonary embolism
CPT/HCPCS: 36415; 36430; 36600; 71046; 73590; 73700; 80048; 80053; 80069; 80202; 82728; 82803; 82947; 83540; 83550; 83605; 83735; 83880; 84443; 85014; 85018; 85025; 85730; 86850; 86900; 86901; 86920; 86923; 87040; 92610; 94640; 94660; 94762; 96374; 97110; 97162; 99285-25; A9270; A9270-GY; J0690; J1170; J1450; J1885; J1940; J1953; J1956; J2310; J2370; J2405; J2704; J2916; J3010; J3370; J3480; J7030; J7050; J7120; P9016

== ENCOUNTER 2018-11-30 11:20 | Emergency (ER) | payer OTHER ==
[~2018-11-30] VITALS: Ht 165.1 cm; Wt 75.3 kg
[~2018-11-30 11:20] MED LIST changes: +ADULT TUSS100 MG/5 M PO; +Laxative Suppos10 MG PR; +ONDA4ODT PO; +Zocor20 MG PO
== END 2018-11-30 16:00 | disposition home or self-care (01) ==
LOC: ER 11:20
DX: I82.4Z1 Acute embolism and thrombosis of unspecified deep veins of right distal lower extremity (principal); Z88.0 Allergy status to penicillin; Z88.6 Allergy status to analgesic agent; Z88.8 Allergy status to other drugs, medicaments and biological substances; Z79.899 Other long term (current) drug therapy; J45.909 Unspecified asthma, uncomplicated; I12.9 Hypertensive chronic kidney disease with stage 1 through stage 4 chronic kidney disease, or unspecified chronic kidney disease; N18.3 Chronic kidney disease, stage 3 (moderate); F03.90 Unspecified dementia, unspecified severity, without behavioral disturbance, psychotic disturbance, mood disturbance, and anxiety; F32.9 Major depressive disorder, single episode, unspecified
CPT/HCPCS: 99283

== ENCOUNTER 2019-03-15 18:40 | Inpatient (IN) | payer OTHER ==
[~2019-03-15] VITALS: Ht 172.7 cm; Wt 80.4 kg
[2019-03-15 19:05] LABS: BASOPHILS ABSOLUTE AUTO 0.07 K/mm3 (0.00-0.23); BASOPHILS PERCENT AUTO 1 % (0-2); EOSINOPHILS ABSOLUTE AUTO 0.04 K/mm3 (0.00-0.68); EOSINOPHILS PERCENT AUTO 0 % (0-6); Hematocrit 47.2 % (33.0-51.0); Hemoglobin 12.8 g/dL (11.5-16.0); IMMATURE GRAN ABSOLUTE AUTO 0.07 K/mm3 (0.00-0.10); IMMATURE GRAN PERCENT AUTO 1 % (0-1); LYMPHOCYTES ABSOLUTE AUTO 0.82 K/mm3 (0.84-5.20); LYMPHOCYTES PERCENT AUTO 6 % (21-46); MONOCYTES ABSOLUTE AUTO 1.14 K/mm3 (0.16-1.47); MONOCYTES PERCENT AUTO 8 % (4-13); Mean Corpuscular HGB 27.4 pg (26.0-34.0); Mean Corpuscular HGB Conc 27.1 g/dL (31.5-36.5); Mean Corpuscular Volume 101 fL (80-100); Mean Platelet Volume 10.2 fL (9.1-12.4); NEUTROPHILS ABSOLUTE AUTO 12.11 K/mm3 (1.96-9.15); NEUTROPHILS PERCENT AUTO 85 % (41-73); Platelet Count 206 K/mm3 (150-400); RDW Coefficient Variation 26.7 % (11.7-14.2); RDW Standard Deviation 96.7 fL (35.1-46.3); Red Blood Cell Count 4.67 M/mm3 (3.80-5.20); White Blood Cell Count 14.25 K/mm3 (4.00-11.30)
[2019-03-15 19:08] LABS: Base Excess Venous 13.5 mmol/L; Bicarbonate Venous 33.8 mmol/L (24.0-30.0); PCO2 Venous 81.2 mmHg (38-42); PO2 Venous 72.1 mmHg (38-42)
[2019-03-15 19:27] LABS: Anion Gap 4 mmol/L (6-16); Blood Urea Nitrogen 30 mg/dL (8-24); Bun/Creatinine Ratio 33.2 (12.0-20.0); CO2, Blood 37 mmol/L (21-32); Calcium, Blood 6.8 mg/dL (8.5-10.1); Chloride, Blood 97 mmol/L (98-108); Glomerular Filtration Rate >60 (60-); Glucose, Blood 139 mg/dL (70-99); Potassium, Blood 4.5 mmol/L (3.5-5.5); Sodium, Blood 138 mmol/L (136-145); Troponin I <0.015 ng/mL (0.000-0.040)
--- NOTE | 2019-03-15 22:11 | NUR ---
PHOTO TAKEN OF WOUND ON PT'S R LEG, DRESSING CHANGED.
--- NOTE | 2019-03-16 04:15 | NUR ---
PT ADMITTED LAST PM WITH RESPIRATORY DISTRESS. O2 PER NC - NOW AT 3L/MIN. SOME DISTRESS WITH THIN LIQUIDS BUT TOLERATES THICKENED LIQUIDS WELL. CALL LIGHT IN REACH.
[2019-03-16 05:11] LABS: BASOPHILS ABSOLUTE AUTO 0.02 K/mm3 (0.00-0.23); BASOPHILS PERCENT AUTO 0 % (0-2); EOSINOPHILS PERCENT AUTO 0 % (0-6); Hematocrit 46.3 % (33.0-51.0); Hemoglobin 12.6 g/dL (11.5-16.0); IMMATURE GRAN ABSOLUTE AUTO 0.05 K/mm3 (0.00-0.10); IMMATURE GRAN PERCENT AUTO 1 % (0-1); LYMPHOCYTES ABSOLUTE AUTO 0.28 K/mm3 (0.84-5.20); LYMPHOCYTES PERCENT AUTO 3 % (21-46); MONOCYTES PERCENT AUTO 1 % (4-13); Mean Corpuscular HGB 27.2 pg (26.0-34.0); Mean Corpuscular HGB Conc 27.2 g/dL (31.5-36.5); Mean Corpuscular Volume 100 fL (80-100); Mean Platelet Volume 10.5 fL (9.1-12.4); NEUTROPHILS ABSOLUTE AUTO 8.83 K/mm3 (1.96-9.15); NEUTROPHILS PERCENT AUTO 95 % (41-73); Platelet Count 194 K/mm3 (150-400); RDW Coefficient Variation 26.5 % (11.7-14.2); RDW Standard Deviation 94.4 fL (35.1-46.3); Red Blood Cell Count 4.63 M/mm3 (3.80-5.20); White Blood Cell Count 9.28 K/mm3 (4.00-11.30)
[2019-03-16 05:34] LABS: Anion Gap 4 mmol/L (6-16); Blood Urea Nitrogen 29 mg/dL (8-24); Bun/Creatinine Ratio 33.4 (12.0-20.0); CO2, Blood 37 mmol/L (21-32); Calcium, Blood 6.6 mg/dL (8.5-10.1); Chloride, Blood 97 mmol/L (98-108); Creatinine, Blood 0.87 mg/dL (0.40-1.00); Glomerular Filtration Rate >60 (60-); Glucose, Blood 138 mg/dL (70-99); Potassium, Blood 5.1 mmol/L (3.5-5.5); Sodium, Blood 138 mmol/L (136-145)
--- NOTE | 2019-03-16 17:46 | NUR ---
SHIFT SUMMARY PT AXO TO SELF, PLACE AND FOLLOWING DIRECTIONS THOUGH IS FORGETFUL, IRRITABLE AND AGGITATED AT TIMES. MED REC COMPLETED USING THE MAR FROM [facility]. PT CONTINUES TO REQUIRE 3L TO 5L. IS ON 5L AT THIS TIME, SAT 94% AT THIS TIME. IV PATENT AND SALINE LOCKED. BED IN LOW POSITION, CALL LIGHT WITHIN REACH, BED ALARM ON
--- NOTE | 2019-03-17 04:43 | NUR ---
SHIFT SUMMARY PT ON CONTINUOUS PULSE OX, FROM REVIEWING THE CHART IT DOES NOT APPEAR SHE WAS ON CONTINUOUS PULSE OX THE NIGHT SHE ADMITTED. PT WAS ON OXYMIZER DUE TO FLUCTUATION IN 02 SATS FROM 80'S TO LOW 90'S. PT'S SATS CONTINUED TO DROP MOST LIKELY DUE TO PT SHALLOW/MOUTH BREATHING. RT CALLED AND PLACED CPAP ON PT. PT SATS NOW CONSISTENTLY IN 90'S. WILL CONTINUE TO MONITOR.
[2019-03-17 05:28] LABS: Bun/Creatinine Ratio 27.5 (12.0-20.0); Calcium, Blood 6.8 mg/dL (8.5-10.1); Creatinine, Blood 1.38 mg/dL (0.40-1.00); Potassium, Blood 5.7 mmol/L (3.5-5.5)
--- NOTE | 2019-03-17 05:51 | NUR ---
UPDATE FOUND PT LETHARGIC WHEN CHECKING VITALS THIS AM. DIFFICULT TO GET PT TO OPEN EYES. SATS ARE 93% ON CPAP WITH 9L BLEED IN. CALLED DR. ISRAEL TO NOTIFY OF CHANGE. ABG ORDERED. WILL CONTINUE TO MONITOR.
[2019-03-17 05:59] LABS: PCO2 Arterial > 105 mmHg (35-45); pH Blood Arterial 7.17 (7.35-7.45)
--- NOTE | 2019-03-17 06:36 | NUR ---
TRANSFER PT TRANSFERED TO ICU 08 VIA BED. TRANSFERED TO ICU BED BY STAFF WITH SLIDER SHEET. PT YELLS "OUCH" WHEN MOVED. PLACE ON BIPAP 20/10 RATE16 FIO2 40%. SPO2 92%. ATTENDS CD&I. IV 20G TO LEFT HAND SALINE LOCKED, 18G TO LEFT AC SALINE LOCKED. WOUND NOTED TO RIGHT LOWER EXT. PT NOT TAKING DEEP BREATHS. LUNGS DECREASED THROUGHTOUT. RT AT BEDSIDE
--- NOTE | 2019-03-17 07:00 | NUR ---
CALL TO MD CALL TO DR MARINO REGARDING POOR TV ON BIPAP AND DECREASED LOC. REVIEWED ABG WITH DR MARINO. ORDER TO INTUBATED PT AND PULM CONSULT.
--- NOTE | 2019-03-17 07:05 | NUR ---
ASSUMED CARE: REPORT RECEIVED FROM LUCY Jackson RN. ASSUMED CARE OF THIS PT AT APPROX 0700. ON ASSESSMENT, THE PT IS WEARING BIPAP. O2 SATS > 92% BUT PT CONTINUALLY IS TAKING IN LOW TIDAL VOLUMES, < 200 ON AVG. PLAN IS FOR INTUBATION, ED PROVIDER HAS BEEN NOTIFIED & IS COMING TO THE UNIT. DR MCFADDEN HAS BEEN CONSULTED & NOTIFIED VIA PHONE. PT IS MOSTLY SOMNOLENT, RESPONDING ONLY TO PAINFUL STIMULUS & ONLY VERBALIZING "OUCH" REPEATEDLY. WILL CONTINUE TO MONITOR & UPDATE NEEDED.
--- NOTE | 2019-03-17 07:45 | NUR ---
INTUBATION: 0707 - DR JARRELL AT BEDSIDE. QI RT, THIS RN & ERLINDA Glynn RN AT BEDSIDE. RSI KIT OPEN; PROVIDER WOULD LIKE TO USE ROCURONIUM & ETOMIDATE FOR PROCEDURE. 0711 - 20 MG ETOMIDATE GIVEN & FLUSHED, 50 MG ROCURONIUM GIVEN & FLUSHED. 0713 - GLIDESCOPE USED & ETT PLACED W/O DIFFICULTY. ETT IS 7.5 & 22 AT UPPER LIP. GOOD COLOR CHANGE NOTED. LS AUSCULTATED IN ALL NYE. CXR ORDERED. 0721 - OGT PLACED W/ GASTRIC RETURN NOTED & BUBBLING SOUND NOTED ON AUSCULTATION. VENT SETTINGS INITIALLY AC 14, TV 450, PEEP 5 & FIO2 100%, CHANGED PER DR MCFADDEN TO AC 18, TV 400, PEEP 5 & FIO2 50%. PT NOW WAKING SLIGHTLY, PROPOFOL INITIATED AT LOW RATE & TEMP WOODARD PLACED. WILL CONTINUE TO MONITOR & UPDATE NEEDED.
[2019-03-17 07:51] LABS: Source, Urine Catheter
[2019-03-17 07:59] LABS: Bilirubin, Urine Neg (Neg); Blood, Urine 5+ (Neg); Glucose Qualitative, Urine Neg (Neg); Ketones, Urine 1+ (Neg); Leukocyte Esterase, Urine 3+ (Neg); Nitrite, Urine Neg (Neg); Protein, Urine 2+ (Neg); Specific Gravity, Urine 1.015 (1.003-1.022); Urobilinogen, Urine 1+ (Normal)
[2019-03-17 08:06] LABS: Appearance, Urine Cloudy (Clear); Color, Urine Yellow (P-Yellow)
[2019-03-17 08:10] LABS: Adenovirus Not Detected (NOT DETECT); Bordetella pertussis Not Detected (NOT DETECT); Chlamydophila pneumoniae Not Detected (NOT DETECT); Coronavirus 229E Not Detected (NOT DETECT); Coronavirus HKU1 Not Detected (NOT DETECT); Coronavirus NL63 Not Detected (NOT DETECT); Coronavirus OC43 Not Detected (NOT DETECT); Human Metapneumovirus Not Detected (NOT DETECT); Human Rhinovirus/Enterovirus Not Detected (NOT DETECT); Influenza A Not Detected (NOT DETECT); Influenza A/2009-H1 Not Detected (NOT DETECT); Influenza A/H1 Not Detected (NOT DETECT); Influenza A/H3 Not Detected (NOT DETECT); Influenza B Not Detected (NOT DETECT); Mycoplasma pneumoniae Not Detected (NOT DETECT); Parainfluenza Virus 1 Not Detected (NOT DETECT); Parainfluenza Virus 2 Not Detected (NOT DETECT); Parainfluenza Virus 3 Not Detected (NOT DETECT); Parainfluenza Virus 4 Not Detected (NOT DETECT); Respiratory Syncytial Virus Not Detected (NOT DETECT)
[2019-03-17 08:22] LABS: Red Blood Cells, Urine TNTC /hpf (0-2); White Blood Cells, Urine TNTC /hpf (0-5)
[2019-03-17 08:22] LABS: PCO2 Arterial 50.1 mmHg (35-45); PO2 Arterial 51.6 mmHg (80-100); pH Blood Arterial 7.48 (7.35-7.45)
[2019-03-17 08:23] LABS: Bacteria Many /hpf
[2019-03-17 08:24] LABS: Squamous Epithelial Cells Not Seen /hpf (Few)
--- NOTE | 2019-03-17 09:55 | NUR ---
DR MCFADDEN: PROVIDER AGAIN AT BEDSIDE TO SEE PT. SHE IS MORE ALERT & FOLLOWING COMMANDS NOW. CANNOT TITRATE PROPOFOL UP ANY FURTHER R/T HYPOTENSION. PROVIDER HAS CHANGED VENT SETTINGS TO SPONTANEOUS TO CHECK PT's TIDAL VOLUMES. TV REMAIN < 200 ON AVG. PLAN IS TO PROVIDE SEDATION ADJUNT W/ PRECEDEX & SEE HOW PT TOLERATES. WILL CONTINUE TO MONITOR & UPDATE NEEDED.
--- NOTE | 2019-03-17 13:23 | NUR ---
CENTRAL LINE: LINE PLACED BY DR MCFADDEN AT APPROX 1245. PT TOLERATED WELL W/ MEDS PER EMAR FOR SEDATION ADJUNT. PT TOLERATED PROCEDURE WELL & CENTRAL LINE PLACED TO L IJ W/O DIFFICULTY. CXR COMPLETED & PLACEMENT VERIFIED BY BITA AVILES TO USE LINE. LEVOPHED INITIATED FOR BP MANAGEMENT. WILL CONTINUE TO MONITOR & UPDATE NEEDED.
--- NOTE | 2019-03-17 15:24 | NUR ---
TUBE FEEDING: VITAL HP TUBE FEEDS INITIATED AT RATE OF 25 ML/HR W/ 30ML H2O FLUSH Q4H. OKAY TO BE ADVANCED AT APPROX 2300 TONIGHT IF PT TOLERATING WELL. GOAL RATE OF 45 ML/HR.
[2019-03-17 16:22] LABS: International Normalized Ratio 1.18; Prothrombin Time Results 12.3 Sec (9.7-11.5)
--- NOTE | 2019-03-17 17:30 | NUR ---
CENTRAL LINE / DR MCFADDEN: CENTRAL LINE TO L IJ CONTINUES OOZING BLOOD & DRESSING IS SATURATED. DRESSING CHANGE AGAIN NEEDED. CALL TO DR MCFADDEN TO NOTIFY HIM OF THIS. HE STS TO PLACE A GIOVANNI DRESSING UNDER THE TEGADERM CHG & TO APPLY A 2LB WEIGHT TO THE AFFECTED AREA. DRESSING CHANGE COMPLETED & WEIGHT APPLIED.
--- NOTE | 2019-03-17 18:41 | NUR ---
SHIFT SUMMARY: NO ACUTE CHANGES SINCE PRIOR UPDATES. PT REMAINS INTUBATED & SEDATED W/ PROPOFOL & PRECEDEX, TITRATION DOCUMENTED IN FLOWSHEET. PT AWAKENS EASILY TO VERBAL STIMULUS & FOLLOWS COMMANDS W/O DIFFICULTY. VENT SETTINGS: AC 18, TV 400, PEEP 5 & FIO2 40%. O2 SATS > 92% ON AVG. LS IMPROVED SINCE THIS AM, STILL REMAIN COARSE & DIM. MONITOR SHOWS SR W/ PACs & PVCs, HR 70-80s. BP STABLE W/ LEVOPHED DRIP TITRATED IN FLOWSHEET. BTx4, TUBE FEED INFUSING NOTED PRIOR W/ LOW RESIDUAL. TEMP WOODARD PATENT/ DRAINING CLOUDY YELLOW URINE W/ COPIOUS AMNTS SEDIMENT. RLE WOUND DRESSING CHANGED. WILL CONTINUE TO MONITOR & REPORT OFF TO ONCOMING RN.
--- NOTE | 2019-03-17 19:32 | NUR ---
ASSUMED CARE RECEIVED REPORT FROM CAROL NORRIS. PT HAS 7.5 ETT, 23 AT LIP - WITH VENT SETTINGS OF AC18/400/5/40%. CURRENT GTTPS: LEVOPHED 8MCG/KG/MIN, PROPOFOL 15MCG/KG/MIN, AND PRECEDEX 0.4MCG/KG/HR. SHE HAS VITAL HIGH PROTEIN TF RUNNING AT 25ML/HR THROUGH OG TUBE. PT HAS A WOODARD THAT IS PATENT AND HANGIG TO GRAVITY. HER CVC IS LEAKING BLOOD, BUT THE DRESSING REMAINS INTACT. RESTRAINTS ARE SECURED TO BED AND BILATERAL WRISTS. BED IS LOW AND LOCKED. NO FAMILY AT BEDSIDE.
[2019-03-18 04:19] LABS: Hematocrit 45.4 % (33.0-51.0); Hemoglobin 12.7 g/dL (11.5-16.0); Mean Corpuscular HGB 27.4 pg (26.0-34.0); Mean Corpuscular Volume 98 fL (80-100); Mean Platelet Volume 10.3 fL (9.1-12.4); NRBC ABSOLUTE 0.02 K/mm3 (0.00-0.02); NRBC Auto 0.2 /100 WBC (0.0-0.2); Platelet Count 247 K/mm3 (150-400); RDW Coefficient Variation 26.2 % (11.7-14.2); RDW Standard Deviation 90.9 fL (35.1-46.3); Red Blood Cell Count 4.63 M/mm3 (3.80-5.20)
[2019-03-18 04:42] LABS: Bun/Creatinine Ratio 31.4 (12.0-20.0); Calcium, Blood 7.2 mg/dL (8.5-10.1); Creatinine, Blood 1.02 mg/dL (0.40-1.00); Magnesium, Blood 2.2 mg/dL (1.6-2.4)
[2019-03-18 04:47] LABS: Phosphorus, Blood 0.9 mg/dL (2.5-4.9)
[2019-03-18 04:55] LABS: PCO2 Arterial 39.1 mmHg (35-45); PO2 Arterial 80.5 mmHg (80-100); pH Blood Arterial 7.56 (7.35-7.45)
--- NOTE | 2019-03-18 05:09 | NUR ---
SBT/SEDATION VACATION/CALL TO [facility] PT DID NOT LAST LONG ON SBT. SHE NEEDED CONSTANT STIMULATION TO PULL IN A BREATH, WITHOUT GOING APNEIC & WHEN SHE DID TAKE A BREATH IN HER TIDAL VOLUMES WERE < 100ML. PT DID HOWEVER, FOLLOW ALL COMMANDS: SQUEEZE FINGERS AND LET GO, WIGGLE TOES, AND OPEN EYES (TO THE BEST OF HER ABILITY). PT HAD CRITICAL LAB VALUE REGARDING A PHOSPHORUS OF 0.9. SHE ALSO HAD A IONIZED CALCIUM OF 0.92 - PLACED CALL TO [facility] AT 0455 AND HE ORDERED SODIUM PHOSPHATE, AND CALCIUM CHLORIDE TO BE GIVEN. AFTER HEARING ABG RESULTS - HE ORDERED A RATE CHANGE ON THE VENT TO 12.
--- NOTE | 2019-03-18 06:27 | NUR ---
SHIFT SUMMAARY PT REMAINS INTUBATED ON THE VENT; AC12/400/5/40%. CURRENT GTTPS: PROPOFOL 15MCG/KG/MIN, PRECEDEX 0.4MCG/KG/HR, LEVOPHED 6MCG/KG/MIN, AND SODIUM PHOS + CALCIUM CHLORIDE RIDERS. DURING SEDATION VACATION SHE FOLLOWED COMMANDS. WHEN SEDATED PT MAINTAINED A CPOT OF 0. SHE HAS A WOODARD PATENT, DRAINING 600ML OF URINE, FOUL SMELLING AND CLOUDY YELLOW. VERY SMALL BM OVERNIGHT. SINUS RHYTHM AND SOFT BP'S, THAT HAVE IMPROVED OVERNIGHT. SHE HAS BLOOD TINGED-CLEAR, SECRETIONS FROM TRACHEA. SKIN IS CLAMMY AND FRAGILE. PT HAD PROLONGED QTc OF 0.52; MG LEVEL CAME BACK WNL. CENTRAL LINE IS OOZING BLOOD AT SITE, REQUIRING FREQUENT DRESSING CHANGES, WITH GIOVANNI DRESSING. SAFESET AND CVP IN PLACE, CVP WAS 18 AT START OF SHIFT. PT HAD LOW PHOSPHORUS AND CALCIUM, BUT IMPROVED POTASSIUM LEVEL. UPDATED DAUGHTER LATE LAST NIGHT. BED IS LOW AND LOCKED.
--- NOTE | 2019-03-18 07:30 | NUR ---
INITAL ASSESSMENT ASSUMED CARE OF PT AT 0700. REPORT FROM KRIS MEDINA. PT INTUBATED AND SEDATED. VENT SETTINGS AC 12/400/5/40%. PROPOFOL INFUSING AT 15 MCG/KG/MIN, PRECEDEX 0.4 MCG/KG/HR. PT OPENS EYES TO VERBAL STIMULI, FOLLOWS SIMPLE COMMANDS. COUGH, GAG, SWALLOW INTACT. LUNGS COARSE IN UPPER LOBES, DIMINSHED IN BASES. SR c PVC AND PAC ON MONITOR. LEVOPHED INFUSING, TITRATING TO MAINTAIN MAP >65. TUBE FEEDING CONTINUOUS INFUSION AT 45 ML/HR, AT GOAL. RESIDUALS 10ML. ABD SOFT. 3+ EDEMA TO BILATERAL LOWER EXTREMITIES. DRESSING TO RLE, PETROLEUM AND KERLEX. CAP REFILL <3 SEC. WOODARD PATENT, DRAINING TO GRAVITY, YELLOW URINE c SEDIMENT. NA PHOS INFUSING. WILL CONTINUE TO MONITOR.
--- NOTE | 2019-03-18 10:25 | NUR ---
CARE DISCUSSED c DR FISHMAN. WILL HOLD PLAVIX TODAY, REASSESS TOMORROW. WILL REASSESS NEED FOR LOVENOX TONIGHT. PO MEDS GIVEN VIA OGT. WILL DIURESE THIS SHIFT AND MONITOR URINARY OUTPUT. PRECEDEX HELD PER DR FISHMAN AT THIS TIME. ASSESSED CENTRAL LINE SIGHT, OOZING BLOOD FROM INSERTION SITE. DRESSING CHANGED, GIOVANNI PLACED. VENT SETTINGS CHANGED TO SPONT PS 14/40%/5. TITAL VOLUMES 400-450. FAMILY GRISEL UPDATED BY NURSE AND MD. WILL CONTINUE TO MONITOR.
--- NOTE | 2019-03-18 14:48 | NUR ---
PT CONTINUING TO OOZE THROUGH CENTRAL LINE DRESSING, AWARE. WILL CHECK HGB AT 1600. WILL HOLD LOVENOX TONIGHT, REASSESS PLAVIX IN AM. PT CPOT 3 BEFORE FENTANYL ADMINSTRATION, PROPOFOL INFUSING AT 12 MCG/KG/MIN. ORDER FOR FENTANYL PRN OBTAINED. RECTAL TUBE PLACED AFTER LARGE LOOSE BM.
[2019-03-18 16:00] LABS: Hematocrit 40.6 % (33.0-51.0); Hemoglobin 12.1 g/dL (11.5-16.0)
--- NOTE | 2019-03-18 17:41 | NUR ---
SHIFT SUMMARY PT REMAINS INTUBATED AND SEDATED. VENT SETTINGS AC 12/400/5/30%. PT ON SPONTANEOUS MODE FOR OVER HALF OF THIS SHIFT. CHANGED TO AC SETTINGS D/T LOW TITAL VOLUMES. PROPOFOL INFUSING AT 17 MCG/KG/MIN, PT GIVEN PRN FENTANYL FOR CPOT 2-4 THIS SHIFT. PRECEDEX STOPPED PER DR FISHMAN. GOAL TO USE PROPOFOL AND FENTANYL FOR SEDATION NEXT SHIFT. LUNGS IMPROVED, CLEAR IN UPPER LOBES, DIMINISHED IN BASES. PT c BRIGHT RED SPUTUM. COUGH/GAG/SWALLOW PRESENT, RESPONSES TO VERBAL STIMULI. GRIMACES c CARE. LEVOPHED TITRATED FOR MAP >65 THIS SHIFT. CURRENTLY INFUSING AT 6 MCG/MIN. DIURESED TODAY, CLEAR YELLOW URINE, 1000ML OUT THIS SHIFT, WOODARD PATENT AND DRAINING TO GRAVITY. TUBE FEEDING CONTINUES AT 45 ML/HR, GOAL, RESIDUALS 5-15 ML THIS SHIFT. CENTRAL LINE DRESSING CONTINUES TO OOZE BLOOD. DRESSING CHANGED 3 TIMES THIS SHIFT. REPORT TO ONCOMING NURSE.
--- NOTE | 2019-03-18 19:00 | NUR ---
I AGREE WITH DOCUMENTATION BY CAROL DUBOIS.
--- NOTE | 2019-03-18 23:16 | NUR ---
PRECEDEX TURNED BACK ON DUE TO PT NOT BEING ADEQUATELY SEDATED WITH JUST PROPOFOL AND HAVING TO TURN LEVOPHED UP BECAUSE BP IS DROPPING WITH PROPOFOL INCREASE. PT CONTINUALLY GRIMACING AND BRACING DESPITE PROPOFOL AND FENTANYL.
[2019-03-19 04:39] LABS: Base Excess Venous 14.6 mmol/L; Bicarbonate Venous 37.5 mmol/L (24.0-30.0); PO2 Venous 55.1 mmHg (38-42)
[2019-03-19 04:40] LABS: pH Blood Venous 7.61 (7.34-7.37)
[2019-03-19 04:53] LABS: BASOPHILS ABSOLUTE AUTO 0.03 K/mm3 (0.00-0.23); BASOPHILS PERCENT AUTO 0 % (0-2); EOSINOPHILS ABSOLUTE AUTO 0.03 K/mm3 (0.00-0.68); EOSINOPHILS PERCENT AUTO 0 % (0-6); Hematocrit 42.1 % (33.0-51.0); Hemoglobin 12.5 g/dL (11.5-16.0); IMMATURE GRAN PERCENT AUTO 1 % (0-1); LYMPHOCYTES ABSOLUTE AUTO 0.89 K/mm3 (0.84-5.20); LYMPHOCYTES PERCENT AUTO 4 % (21-46); MONOCYTES ABSOLUTE AUTO 1.47 K/mm3 (0.16-1.47); MONOCYTES PERCENT AUTO 7 % (4-13); Mean Corpuscular HGB 27.7 pg (26.0-34.0); Mean Corpuscular HGB Conc 29.7 g/dL (31.5-36.5); Mean Platelet Volume 10.6 fL (9.1-12.4); NEUTROPHILS ABSOLUTE AUTO 18.24 K/mm3 (1.96-9.15); NEUTROPHILS PERCENT AUTO 88 % (41-73); Platelet Count 231 K/mm3 (150-400); RDW Coefficient Variation 27.3 % (11.7-14.2); RDW Standard Deviation 87.6 fL (35.1-46.3); Red Blood Cell Count 4.52 M/mm3 (3.80-5.20); White Blood Cell Count 20.76 K/mm3 (4.00-11.30)
[2019-03-19 04:54] LABS: Mean Corpuscular Volume 93 fL (80-100)
[2019-03-19 05:34] LABS: Anion Gap 8 mmol/L (6-16); Blood Urea Nitrogen 32 mg/dL (8-24); Bun/Creatinine Ratio 34.7 (12.0-20.0); CO2, Blood 34 mmol/L (21-32); Calcium, Blood 7.9 mg/dL (8.5-10.1); Chloride, Blood 97 mmol/L (98-108); Creatinine, Blood 0.92 mg/dL (0.40-1.00); Glomerular Filtration Rate >60 (60-); Glucose, Blood 157 mg/dL (70-99); Magnesium, Blood 1.9 mg/dL (1.6-2.4); Potassium, Blood 3.1 mmol/L (3.5-5.5); Sodium, Blood 139 mmol/L (136-145)
--- NOTE | 2019-03-19 06:26 | NUR ---
SUMMARY PT INTUBATED AND SEDATED WITH PROPOFOL AND PRECEDEX. WITHOUT PRECEDEX PT WAS AGITATED AND WAS HAVING TO GO UP ON PROPOFOL. WHEN GOING UP ON PROPOFOL PT'S BP WOULD DROP AND THEREFORE HAVE TO GO UP ON THE LEVOPHED. SEE FLOWSHEET FOR TITRATIONS. CALLED DR. FISHMAN ABOUT CRITICAL HIGH PH ON VBG THIS AM AND ALSO LET HER KNOW ABOUT POTASSIUM AND PHOSPHATE LEVELS. NEW ORDER FOR KPHOS RECEIVED. PT'S CENTRAL LINE CONTINUES TO LEAK BLOOD CONTINUOUSLY. HAD TO CHANGE DRESSING 3X'S. PT DID OK ON HER SBT THIS AM. SHE WOKE FROM SEDATION EASILY AND WAS VERY ALERT DURING THE SBT. STILL HAVING MOD AMT OF RED SPUTUM FROM ETT. FIO2 AT 35% NOW, WAS UP TO 40% AT ONE POINT IN THE NIGHT. NO SIGN OF DISTRESS, RESTING QUIETLY ON SEDATION.
--- NOTE | 2019-03-19 07:30 | NUR ---
ASSUMED CARE AT 0700. REPORT FROM RU MEDINA. PT INTUBATED AND SEDATED. VENT SETTINGS 12/400/5/35%. PROPOFOL INFUSING AT 40 MCG/KG/MIN AND PRECEDEX AT 0.6 MCG/KG/HR. PT RESPONSES TO PAINFUL STIMULI. LUNGS COARSE, DIMINISHED IN BASES. BRIGHT RED BLOODY SECRETIONS INLINE SUCTION. LEVOPHED INFUSING AT 8 MCG/MIN, WILL CONTINUE TO TITRATED FOR MAP >65. CENTRAL LINE CONTINUES TO OOZE BLOOD. DRESSING INTACT, GAUZED UNDER TEGADERM. INCREASED SWELLING TO LEFT SIDE OF NECK. INFUSING s DIFFICULTY. K PHOS INFUSING. 2+ EDEMA TO UPPER EXTREMITIES, 3+ TO LOWER EXTREMITIES, DEPENDENT TRUNK EDEMA. WOODARD PATENT AND DRAINING TO GRAVITY. RECTAL TUBE DRAINING BROWN STOOL. WOUND TO RLE REDRESSED, REDNESS c SUPERFICIAL ULCER NOTED. PETROLEUM DRESSING c KERLEX PLACED. WILL CONTINUE TO MONITOR.
--- NOTE | 2019-03-19 11:55 | NUR ---
CARE DISCUSSED c DR FISHMAN. WILL CHANGED ANTIBIOTICS TO CEFETRIAXONE, DIURESIS c DIAMOX, INFUSE FFP. CONSENT FOR BLOOD PRODUCTS OBTAINED FROM RAMOS OVER PHONE.
--- NOTE | 2019-03-19 13:49 | NUR ---
ASSUMED CARE FROM RAMIRO BOSS RN.
--- NOTE | 2019-03-19 14:08 | NUR ---
LEVOPHED 6 MCG/MIN. PROPOFOL 25 MCG/KG/MIN PRECEDEX 0.5 MCG/G/HR. RECTAL TUBE WITH LIGHT BROWN STOOL. BRIGHT R BLOOD FROM ETT SX. VENT SETTING A/C 12 Vt 400 PEEP 5 AND FIO2 30%. LEFT IJ CENTRAL LINE CONTINUES TO SATURATE AND OVERFLOW DRESSING.
--- NOTE | 2019-03-19 14:12 | NUR ---
LEVOPHED TO 8 MCG/MIN FOR BP 80/39(56)
--- NOTE | 2019-03-19 14:54 | NUR ---
NIECE IN. UPDATE GIVEN
--- NOTE | 2019-03-19 15:41 | NUR ---
DR FISHMAN IN. CHANGED VENT TO SPONT PS 14
--- NOTE | 2019-03-19 17:15 | NUR ---
LARGE CLOT UNDER CENTRAL LINE DRESSING. DRYING OUT AROUND THE EDGES WITHOUT SO MUCH OOZING OUTSIDE THE DRESSING. DID NOT CHANGE THE DRESSING SO THE CLOT WOULD REMAIN IN PLACE.
--- NOTE | 2019-03-19 18:10 | NUR ---
PATIENT IN PAIN. 25 MCG IV FENTANYL GIVEN. Vt DROPPED TO 288. QI RT PLACED BACK ON A/C
--- NOTE | 2019-03-19 19:55 | NUR ---
PT INTUBATED AND SEDATED WITH PROPOFOL AND PRECEDEX. PT OPENS EYES TO VOICE AND IS ABLE TO FOLLOW SIMPLE COMMANDS. SEE FLOW SHEET FOR LEVOPHED, PROPOFOL, AND PRECEDEX TITRATIONS. CENTRAL LINE IS STILL OOZING BLOOD BUT HAS SLOWED DOWN IN COMPARISON TO LAST NIGHT. BLOOD WITHIN THE DRESSING LOOKS LIKE IT IS COAGULATING. SEE ASSESSMENT.
[2019-03-20 04:50] LABS: BASOPHILS ABSOLUTE AUTO 0.03 K/mm3 (0.00-0.23); BASOPHILS PERCENT AUTO 0 % (0-2); EOSINOPHILS ABSOLUTE AUTO 0.02 K/mm3 (0.00-0.68); EOSINOPHILS PERCENT AUTO 0 % (0-6); Hematocrit 37.9 % (33.0-51.0); Hemoglobin 11.3 g/dL (11.5-16.0); IMMATURE GRAN ABSOLUTE AUTO 0.05 K/mm3 (0.00-0.10); IMMATURE GRAN PERCENT AUTO 0 % (0-1); LYMPHOCYTES ABSOLUTE AUTO 0.61 K/mm3 (0.84-5.20); LYMPHOCYTES PERCENT AUTO 4 % (21-46); MONOCYTES ABSOLUTE AUTO 0.64 K/mm3 (0.16-1.47); MONOCYTES PERCENT AUTO 4 % (4-13); Mean Corpuscular HGB 27.7 pg (26.0-34.0); Mean Corpuscular HGB Conc 29.8 g/dL (31.5-36.5); Mean Corpuscular Volume 93 fL (80-100); Mean Platelet Volume 10.4 fL (9.1-12.4); NEUTROPHILS ABSOLUTE AUTO 14.25 K/mm3 (1.96-9.15); NEUTROPHILS PERCENT AUTO 91 % (41-73); Platelet Count 150 K/mm3 (150-400); RDW Coefficient Variation 28.1 % (11.7-14.2); RDW Standard Deviation 89.6 fL (35.1-46.3); Red Blood Cell Count 4.08 M/mm3 (3.80-5.20)
[2019-03-20 04:52] LABS: Base Excess Venous 8.8 mmol/L; Bicarbonate Venous 31.5 mmol/L (24.0-30.0); PCO2 Venous 46.8 mmHg (38-42); PO2 Venous 93.7 mmHg (38-42); pH Blood Venous 7.45 (7.34-7.37)
[2019-03-20 05:05] LABS: Anion Gap 9 mmol/L (6-16); Blood Urea Nitrogen 30 mg/dL (8-24); Bun/Creatinine Ratio 32.5 (12.0-20.0); CO2, Blood 32 mmol/L (21-32); Calcium, Blood 8.1 mg/dL (8.5-10.1); Chloride, Blood 104 mmol/L (98-108); Creatinine, Blood 0.92 mg/dL (0.40-1.00); Glomerular Filtration Rate >60 (60-); Glucose, Blood 136 mg/dL (70-99); Magnesium, Blood 1.9 mg/dL (1.6-2.4); Potassium, Blood 2.9 mmol/L (3.5-5.5); Sodium, Blood 145 mmol/L (136-145)
--- NOTE | 2019-03-20 06:15 | NUR ---
SUMMARY PT INTUBATED. HAS BEEN SEDATED WITH PROPOFOL AND PRECEDEX UNTIL 0530 THIS AM FOR SBT. PT IS NOW AWAKE AND ABLE TO NOD YES OR NO TO QUESTIONS. HAS BEEN ON 7MCG OF LEVOPHED ALL NIGHT. CENTRAL LINE HAS STOPPED BLEEDING. WILL CALL DR. FISHMAN ABOUT LOW POTASSIUM THIS AM. NO SIGN OF DISTRESS AT THE MOMENT.
--- NOTE | 2019-03-20 07:40 | NUR ---
ASSUMPTION OF CARE: PT A&O. FOLLOWS COMMANDS. LUNG SOUNDS COARSE THROUGHOUT WITH OCCASIONAL WHEEZES. ON VENT SPONTANEOUS SETTINGS, PEEP 5/O2 AT 30%. SATTING >90%. NSR WITH SOME PVCS, SBP IN THE 1-TEENS, HR IN THE 90S. LEVOPHED RUNNING AT 7. PT HAS RECTAL TUBE THAT IS PATENT. OG IN PLACE AND TUBE FEED RUNNING AT 45 ML/HR WITH 30ML H2O FLUSH Q4H. WOODARD IS IN PLACE DRAINING CLEAR YELLOW URINE. SOME SEDIMENT IN TUBING. PT HAS BRUISING AROUND NECK AREA, LEFT ARM, AND A WOUND THAT IS DRESSED TO L LOWER EXTREMITY. PER REPORT DRESSING CHANGED 03/19/19. L IJ CENTRAL LINE DRESSING IS CLEAN AND INTACT, CURRENTLY INFUSING. NO ACUTE CHANGES CURRENTLY. WILL CONTINUE TO MONITOR
--- NOTE | 2019-03-20 09:00 | NUR ---
PER DR. FISHMAN HOLD PLAVIX BUT RESUME LOVENOX THIS EVENING.
--- NOTE | 2019-03-20 09:48 | NUR ---
PT RESP RATE INCREASING AND VOLUME DECREASING. RT NOTIFIED AND THEN CHANGED PT TO AC SETTINGS. AC 12/400/PEEP 5/FIO2 30%. PROPOFOL STARTED AT 30.
--- NOTE | 2019-03-20 12:35 | NUR ---
PT CURRENTLY UP IN CHAIR TOLERATING IT WELL. PROPOFOL RUNNING AT 20MCG. PRECEDEX RUNNING AT 0.2MCG. TF CHANGED FROM VITALITY TO PIVOT 1.5 AND IS CURRENTLY RUNNING AT 25ML/HR. NEW GOAL IS 40ML/HR. NEW TF STARTED AT 1230.
--- NOTE | 2019-03-20 14:47 | NUR ---
RT WITH PT. PER MD ORDER BREATHING TRIAL INITIATED AND VENT SETTINGS CHANGED TO PS 14 AND PEEP 5
--- NOTE | 2019-03-20 16:23 | NUR ---
SHIFT SUMMARY: PT ALERT TO SELF AND FOLLOWS COMMANDS. HAS BILAT SOFT WRIST RESTRAINTS. MILD ELEVATED TEMP OF 99.0F. LUNG SOUNDS COARSE AND DIMINISHED AT BASES WITH OCCASIONAL WHEEZES. PT WAS ON PRESSURE SUPPORT AT BEGINNING OF SHIFT. CURRENTLY ON AC 14/400/PEEP 5/FIO2 30%. SATTING >90%. SR WITH PACS AND PVCS. SBP IN THE 90S, HR IN THE 80S, LEVOPHED INFUSING AT 6. BOWEL TONES PRESENT, RECTAL TUBE WAS REMOVED TODAY. NO OG RESIDUALS TODAY. TEMP WOODARD IN PLACE DRAINING YELLOW URINE WITH SOME SEDIMENT. RLE WOUND IS CURRENTLY WRAPPED IN GAUZE-LAST CHANGED 03/19/19. DRESSING IN CLEAN, DRY, INTACT. PT HAS LIJ IN PLACE WITH LEVOPHED AND PRECEDEX INFUSING. NO ACUTE CHANGES THIS SHIFT. WILL CONTINUE TO MONITOR.
--- NOTE | 2019-03-20 17:39 | NUR ---
CALL PLACED TO DR. BATISTA RE GI PANEL FOR C. DIFF. PT HAS HAD LOOSE WATERY BMS THROUGHOUT SHIFT.
--- NOTE | 2019-03-20 17:39 | NUR ---
PT HAVING LIQUID STOOL. DR. BATISTA NOTIFIED AND RECEIVED OK TO TEST FOR C.DIFF. SEE ORDERS.
--- NOTE | 2019-03-20 19:34 | NUR ---
PT WIDE AWAKE ON VENT. PRECEDEX INCREASED TO 0.4MCG DUE TO PT NOT BEING COMFORTABLE. DENIES PAIN THOUGH. ABLE TO NOD YES OR NO TO QUESTIONS AND FOLLOWS SIMPLE COMMANDS. ON LEVOPHED 6MCG. TUBE FEED AT 25ML/HR THAT WILL BE INCREASED Q8HR UNTIL 40ML GOAL IS MET. NO RESIDUAL.
[2019-03-21 03:43] LABS: BASOPHILS ABSOLUTE AUTO 0.01 K/mm3 (0.00-0.23); BASOPHILS PERCENT AUTO 0 % (0-2); EOSINOPHILS ABSOLUTE AUTO 0.09 K/mm3 (0.00-0.68); EOSINOPHILS PERCENT AUTO 1 % (0-6); Hematocrit 35.3 % (33.0-51.0); Hemoglobin 10.3 g/dL (11.5-16.0); IMMATURE GRAN ABSOLUTE AUTO 0.04 K/mm3 (0.00-0.10); IMMATURE GRAN PERCENT AUTO 0 % (0-1); LYMPHOCYTES ABSOLUTE AUTO 0.57 K/mm3 (0.84-5.20); LYMPHOCYTES PERCENT AUTO 5 % (21-46); MONOCYTES ABSOLUTE AUTO 0.55 K/mm3 (0.16-1.47); MONOCYTES PERCENT AUTO 5 % (4-13); Mean Corpuscular HGB 27.8 pg (26.0-34.0); Mean Corpuscular HGB Conc 29.2 g/dL (31.5-36.5); Mean Corpuscular Volume 95 fL (80-100); Mean Platelet Volume 10.3 fL (9.1-12.4); NEUTROPHILS ABSOLUTE AUTO 9.38 K/mm3 (1.96-9.15); NEUTROPHILS PERCENT AUTO 88 % (41-73); Platelet Count 123 K/mm3 (150-400); RDW Coefficient Variation 28.5 % (11.7-14.2); Red Blood Cell Count 3.71 M/mm3 (3.80-5.20); White Blood Cell Count 10.64 K/mm3 (4.00-11.30)
[2019-03-21 03:56] LABS: Bun/Creatinine Ratio 26.2 (12.0-20.0); Calcium, Blood 7.8 mg/dL (8.5-10.1); Creatinine, Blood 0.96 mg/dL (0.40-1.00); Phosphorus, Blood 3.7 mg/dL (2.5-4.9); Potassium, Blood 3.1 mmol/L (3.5-5.5)
--- NOTE | 2019-03-21 06:16 | NUR ---
SUMMARY PT AWAKE ON VENT FOR SBT. PT WAS ON PRECEDEX ALL NIGHT FOR SEDATION AND WAS LIGHT ON SEDATION. PT WOULD OPEN EYE'S TO VOICE AND ABLE TO FOLLOW COMMANDS. THIS AM PT EXPRESSES DESIRE TO HAVE ETT REMOVED THROUGH HAND GESTURES. EDUCATED PT ABOUT EXERCISING LUNGS TO MAKE SURE SHE IS STRONG ENOUGH WHEN THAT TIME COMES. DENIES PAIN. LEVOPHED WAS AT 3-4MCG ALL NIGHT. TRIED TO TITRATE DOWN TO 2MCG BUT BP DID NOT TOLERATE IT. TUBE FEED IS AT GOAL AND PT IS TOLERATING WELL. CALLED DR. FISHMAN THIS AM ABOUT POTASSIUM OF 3.1, NEW ORDERS RECEIVED FOR KCL. NO SIGN OF DISTRESS THIS AM.
--- NOTE | 2019-03-21 07:35 | NUR ---
ASSUMED CARE OF PATIENT. DINESH IS AWAKE, FOLLOWS COMMANDS. VENT SETTINGS: SPONT, 30% FIO2, PEEP 5. SUCTIONED ETT X 1 WITH SMALL LIGHT MONK SECRETIONS. ABLE TO ANSWER YES AND NO QUESTIONS, INDICATED THAT PAIN IS UNDER CONTROL AT THIS TIME. LEVOPHED @ 4, PRECEDEX ON STAND BY, KCL INFUSING AT 50 ML/HR, FIRST OF 2. TF @ 40 ML/HR. INDICATED THAT SHE WANTS ETT REMOVED TODAY.
--- NOTE | 2019-03-21 09:25 | NUR ---
SPOKE TO PT'S NIECE RAMOS BY PHONE AT 0845, GAVE UPDATE ON PT'S CONDITION, PAIN LEVEL, BREATHING, AND THAT PT WANTS ETT OUT TODAY. RAMOS STATED SHE WOULD BE IN LATER TODAY FOR VISIT.
--- NOTE | 2019-03-21 11:03 | NUR ---
PATIENT RR 30-35, SHALLOW, INTERMITTENT COUGH. SUCTIONED BOTH ORALLY AND PER ETT. O2 SATURATION 92-94% ON 100% O2, 89-91% ON 30% FIO2. TEMP ELEVATED AT 100.2, TYLENOL GIVEN. DENIED PAIN, RESTING COMFORTABLY AT THIS TIME.
--- NOTE | 2019-03-21 11:25 | NUR ---
PT STATED AFFIRMATIVE WHEN ASKED IF SHE WQAS GETTING TIRED. CONSULTED WITH Carolina GALINDO RT ABOUT PT'S RESP STATUS. PLACED PT BACK ON A/C, TV 400, 14, FIO2 30%, PEEP 5. RR 21 AND O2 SAT 95% AND PATIENT APPEARS COMFORTABLE, IS RESTING.
--- NOTE | 2019-03-21 12:21 | NUR ---
DR. UPTON ATY BEDSIDE FOR ASSESSMENT; GAVE UPATE. PATIENT AWAKE, ABLE TO NOD AND SHAKE HEAD TO QUESTIONS. PROVIDER BRIEFLY DISCUSED POSSIBILITY OF TRACHEOSTOMY, AND CONFIRMED THAT RAMOS IS DECISION MAKER FOR THI PT. PATIENT ENDORSED PAIN. TEMP REMAINS 100.8, DR. ARRIETA AWARE. NO PLAN TO EXTUBATE TOAY. WILL NOTIFY PROVIDER WHEN FAMILY ARRIVES.
--- NOTE | 2019-03-21 17:45 | NUR ---
DR. ECHEVERRIA AT BEDSIDE. RECEIVED VERBAL ORDER FOR LASIX 20 MG IV AND CPT PER RT. ORDERS ENTERED AND RT NOTIFIED.
--- NOTE | 2019-03-21 17:46 | NUR ---
SHIFT SUMMARY: AROUSABLE TO SPEECH, ABLE TO NOD AND SHAKE HEAD IN RESPONSE TO YES/NO QUESTIONS. MOVES BUE WEAKLY WHEN RESTRAINTS OFF [id number]. C/O GENERALIZED PAIN; MEDICATED WITH FENTANYL 25 MCG PRN WITH GOOD EFFECT. CBG D/C'D. C DIFF NEGATIVE. LEVOPHED AT 4 MCG/MIN, PRECEDEX @ 0.6 MCG/KG/HR. TOLERATING TF, LARGEST RESIDUAL WAS 20 ML. SUBSTANTIAL ECCHYMOSIS ON BILATERAL ARMS, NECK, UPPER CHEST, AND LLQ. VENT: A/C, 14/400/FIO2 30%/PEEP 5. SINUS RHYTHM WITH PAC'S AND PVC'S. PLAN IS POSSIBLE EXTUBATION TOMORROW.
--- NOTE | 2019-03-21 18:00 | NUR ---
SPOKE TO PT'S NIECE RAMOS BY PHONE, GAVE UPDATE ON PT'S CONDITION. SHE STATED SHE WILL NOT MAKE IT IN TO SEE DINESH ANDERSON BUT WILL TRY TOMORROW.
--- NOTE | 2019-03-21 21:34 | NUR ---
CARE ASSUMED REPORT RECEIVED, CARE ASSUMED AT 1900 FROM CAROL BUITRAGO. PT INTUBATED AND SEDATED WITH PRECEDEX. PT OPENS EYES SPONTANEOUSLY, FOLLOWS COMMANDS. PT CALM, COOPERATIVE, AND ANSWERING YES/NO QUESTIONS AND USING NONVERBAL BOARD TO POINT OUT NEEDS. PT ON LEVOPHED FOR BLOOD PRESSURE. HR STABLE. AFEBRILE. 02 SAT 90'S WITH CURRENT VENT SETTINGS. BILAT WRIST RESTRAINTS TO PREVENT SELF EXTUBATION. SEE SHIFT ASSESSMENT/FLOWSHEETS.
--- NOTE | 2019-03-22 06:21 | NUR ---
SUMMARY VITALS STABLE WITH LEVOPHED THROUGHOUT SHIFT. ATTEMPTED TO TITRATE DOWN SLOWLY AND BLOOD PRESSUE DID NOT TOLERATE. PRECEDEX CONTINUES FOR SEDATION. SEE REPEAT ASSESSMENTS. LUNG SOUNDS IMPROVING THROUGHOUT NIGHT. VENT SETTINGS UNCHANGED. PT CONTINUES TO HAVE MODERATE AMOUNT OF ORAL AND ETT SECRETIONS. PT TOLERATING TURNS/CARES, ANSWERING YES/NO QUESTIONS, AND FOLLOWING DIRECTIONS. SEE FLOWSHEETS.
--- NOTE | 2019-03-22 08:00 | NUR ---
ASSUMPTION OF CARE: PT A&O TO SELF, FOLLOWS COMMANDS AND WAKES UP TO VOICE. UPPER LUNG SOUNDS ARE COARSE, BUT CLEAR AT BASES. VENT SETTING AC 14/400/PEEP 5/ FIO2 30%. IN SR WITH PACS THIS AM. HR IN THE 80, SBP 130-140. CURRENTLY ON LEVOPHED AT 6. BOWEL TONES NORMOACTIVE, OG IN PLACE WITH CONTINUOUS TF. 15 MLO RESIDUAL THIS AM. PIVOT RUNNING AT GOAL OF 40ML/HR. TEMP WOODARD IN PLACE DRAINING YELLOW URINE TO GRAVITY. PT HAS SCATTERED BRUISING TO BUE, EDEMA TO BILAT ARMS AND BILAT LE. WOUNDS TO RLL WRAPPED IN GAUZE THAT IS CLEAN, DRY, INTACT. PT HAS A L IJ INFUSING PRECEDEX 0.6, LEVOPHED AT 6. LARGE CLOT UNDERNEATH IJ DRESSING. NO ACUTE CHANGES THIS AM. WILL CONTINUE TO MONITOR.
[2019-03-22 08:11] LABS: BASOPHILS ABSOLUTE AUTO 0.04 K/mm3 (0.00-0.23); BASOPHILS PERCENT AUTO 0 % (0-2); EOSINOPHILS ABSOLUTE AUTO 0.27 K/mm3 (0.00-0.68); EOSINOPHILS PERCENT AUTO 2 % (0-6); Hematocrit 35.6 % (33.0-51.0); Hemoglobin 10.4 g/dL (11.5-16.0); IMMATURE GRAN ABSOLUTE AUTO 0.08 K/mm3 (0.00-0.10); IMMATURE GRAN PERCENT AUTO 1 % (0-1); LYMPHOCYTES ABSOLUTE AUTO 0.71 K/mm3 (0.84-5.20); LYMPHOCYTES PERCENT AUTO 6 % (21-46); MONOCYTES ABSOLUTE AUTO 1.01 K/mm3 (0.16-1.47); MONOCYTES PERCENT AUTO 8 % (4-13); Mean Corpuscular HGB 27.7 pg (26.0-34.0); Mean Corpuscular HGB Conc 29.2 g/dL (31.5-36.5); Mean Corpuscular Volume 95 fL (80-100); Mean Platelet Volume 10.8 fL (9.1-12.4); NEUTROPHILS ABSOLUTE AUTO 10.72 K/mm3 (1.96-9.15); NEUTROPHILS PERCENT AUTO 84 % (41-73); Platelet Count 153 K/mm3 (150-400); RDW Coefficient Variation 28.2 % (11.7-14.2); Red Blood Cell Count 3.76 M/mm3 (3.80-5.20); White Blood Cell Count 12.83 K/mm3 (4.00-11.30)
[2019-03-22 09:10] LABS: Anion Gap 6 mmol/L (6-16); Blood Urea Nitrogen 27 mg/dL (8-24); Bun/Creatinine Ratio 34.3 (12.0-20.0); CO2, Blood 26 mmol/L (21-32); Calcium, Blood 7.6 mg/dL (8.5-10.1); Chloride, Blood 109 mmol/L (98-108); Creatinine, Blood 0.79 mg/dL (0.40-1.00); Glomerular Filtration Rate >60 (60-); Glucose, Blood 146 mg/dL (70-99); Potassium, Blood 3.3 mmol/L (3.5-5.5); Sodium, Blood 141 mmol/L (136-145)
--- NOTE | 2019-03-22 10:30 | NUR ---
RT AT PT BEDSIDE. PT CHANGED FROM A/C TO PRESSURE SUPPORT 10/PEEP 5/ FIO2 30%
--- NOTE | 2019-03-22 10:50 | NUR ---
PHARMACY CALLED RE 80MG PO POTASSIUM. RECOMMENDING DIVIDING DOSE AND GIVE HALF NOW AND HALF IN A COUPLE HOURS. SPOKE WITH DR. TERRAZAS AND HE AGREED TO DIVIDING THE DOSE.
--- NOTE | 2019-03-22 13:29 | NUR ---
PT CURRENTLY RESTING COMFORTABLY. CONTINUES TO BE ON PRESSURE SUPPORT AT 10/PEEP5/FIO2 30%. VITALS REMAIN STABLE. IJ DRESSING HAS SMALL AMT OF NEW BLOOD, BUT NO ACTIVE BLEEDING NO ACUTE CHANGES AT THIS TIME. WILL CONTINUE TO MONITOR
--- NOTE | 2019-03-22 14:22 | NUR ---
AFTER FAMILY MEETING RAMOS, PT'S LORENA AND GRISEL CONTINUED TO DISCUSS CODE STATUS AND WISHED FOR PT TO BE DNR STATUS NOW. CALL PLACED TO DR. UPTON REGARDING FAMILY'S WISHES. PT'S CODE STATUS CHANGED TO DNR.
--- NOTE | 2019-03-22 16:22 | NUR ---
PT AWAKE MOST OF THE DAY. A & O TO SELF. FOLLOWS COMMANDS. ABLE TO ANSWER QUESTIONS BY NODDING YES/NO AND USING EZ BOARD. LUNG SOUNDS ARE CLEAR IN UPPER LOBES AND DIMINISHED IN LOWER LOBES. PT IS CURRENTLY ON PS OF 10/PEEP 5/ FIO2 30%. SATTING >90%. IN SR WITH OCC PACS AND PVCS. SBP IN THE 100S, HR IN THE 80S. BOWEL TONES PRESENT X 4. NORMOACTIVE. OJ IN PLACE WITH PIVOT RUNNING AT GOAL OF 40ML/HR. RESIDUALS HAVE BEEN 15 ML, 70 MLS, 30MLS. TEMP WOODARD IN PLACE DRAINING YELLOW URINE. CENTRAL LINE L IJ CURRENTLY INFUSING PRECEDEX AT 0.6 AND LEVOPHED AT 4. UNDER THE CENTRAL LINE IJ DRESSING IS A LARGE CLOT, BUT NO ACTIVE BLEEDING. FAMILY WAS AT BEDSIDE TODAY. NO ACUTE CHANGES AT THIS TIME. WILL CONTINUE TO MONITOR
--- NOTE | 2019-03-22 20:08 | NUR ---
START OF SHIFT: REPORT FROM KEERTHI RN. PT AWAKENS EASILY TO RN AT BEDSIDE. USES COMMUNICATION BOARD POINTING FINGER. VSS. LS CLEAR BILATERALLY DIM AT BASES. PT INTUBATED ON PS OF 10; PEEP 5; FiO2 30%. RT TO BEDSIDE AT APPRX 1930. PT TOLERATED CPT WELL. PT ON PRECEDEX 0.6 mcg/kg/hr, LEVOPHED AT 4mcg/min. PT ON TF PIVET 1.5 mL/hr WHICH IS GOAL. RESIDUAL 40cc REINSTILLED. PT IN BILATERAL SOFT WRIST RESTRAINTS AND IS TOLERATING WELL. EXT ELEVATED ON PILLOWS. PT IN FULL VIEW OF NURSES STATION. WILL CONTINUE TO MONITOR.
--- NOTE | 2019-03-22 20:19 | NUR ---
HOSPITALIST NOTIFIED RE: LUISITO NON-CRUSHABLE AND CHANGE TO LIQUID FORM.
--- NOTE | 2019-03-23 02:28 | NUR ---
UPDATE: PT GREW INCREASINGLY AGITATED. PT APPEARED TO MOUTH, "OUT". PT NODDED HEAD WHEN ASKED IF TRYING TO SAY, 'TAKE IT OUT'. PT, AFTER BEDBATH, SEEMINGLY TIRING BEING ON SPONTANEOUS. RT NOTIFIED AND PT SWITCHED TO A/C. PT MORE RESTFULL. VSS. WILL CONTINUE TO MONITOR.
[2019-03-23 03:40] LABS: BASOPHILS ABSOLUTE AUTO 0.02 K/mm3 (0.00-0.23); BASOPHILS PERCENT AUTO 0 % (0-2); EOSINOPHILS ABSOLUTE AUTO 0.24 K/mm3 (0.00-0.68); EOSINOPHILS PERCENT AUTO 2 % (0-6); Hematocrit 35.2 % (33.0-51.0); Hemoglobin 10.1 g/dL (11.5-16.0); IMMATURE GRAN ABSOLUTE AUTO 0.05 K/mm3 (0.00-0.10); IMMATURE GRAN PERCENT AUTO 0 % (0-1); LYMPHOCYTES PERCENT AUTO 7 % (21-46); MONOCYTES ABSOLUTE AUTO 1.08 K/mm3 (0.16-1.47); MONOCYTES PERCENT AUTO 9 % (4-13); Mean Corpuscular HGB 27.7 pg (26.0-34.0); Mean Corpuscular HGB Conc 28.7 g/dL (31.5-36.5); Mean Corpuscular Volume 96 fL (80-100); Mean Platelet Volume 10.1 fL (9.1-12.4); NEUTROPHILS ABSOLUTE AUTO 9.78 K/mm3 (1.96-9.15); NEUTROPHILS PERCENT AUTO 82 % (41-73); Platelet Count 179 K/mm3 (150-400); RDW Coefficient Variation 27.5 % (11.7-14.2); RDW Standard Deviation 92.5 fL (35.1-46.3); Red Blood Cell Count 3.65 M/mm3 (3.80-5.20); White Blood Cell Count 11.97 K/mm3 (4.00-11.30)
[2019-03-23 03:54] LABS: Anion Gap 8 mmol/L (6-16); Blood Urea Nitrogen 29 mg/dL (8-24); Bun/Creatinine Ratio 36.1 (12.0-20.0); CO2, Blood 25 mmol/L (21-32); Calcium, Blood 7.4 mg/dL (8.5-10.1); Chloride, Blood 110 mmol/L (98-108); Glomerular Filtration Rate >60 (60-); Glucose, Blood 139 mg/dL (70-99); Potassium, Blood 3.7 mmol/L (3.5-5.5); Sodium, Blood 143 mmol/L (136-145)
--- NOTE | 2019-03-23 06:21 | NUR ---
POSSIBLE EXTUBATION: PT'S DAUGHTER GRISEL CALLED AND STATED THAT IF PT IS WANTING TO BE EXTUBATED THEN TODAY WOULD BE OKAY. GRISEL STATED THAT THEY JUST ASK THAT FAMILY BE PRESENT. TODAY (THURSDAY) FAMILY AND GRISEL WOULD BE AVAILABLE TODAY AT [id number] APPROX. WILL REPORT OFF TO DAY RN.
--- NOTE | 2019-03-23 07:10 | NUR ---
START OF SHIFT NOTE: RECEIVED REPORT FROM CAROL UNDERWOOD, ASSUMED CARE, PATIENT IS ON A MECHANICAL VENT, PROPOFOL OFF AT THIS TIME, PATIENT IS ON PRECEDEX 0.6 AND LEVOPHED AT 5, ALSO HAS NS INFUSING AT TKO AND TUBE FEED PIVOT AT 40 CC/HR WHICH IS THE GOAL RATE, PULSES NOTED VIA DOPPLER D/T EDEMA ON BILATERAL LOWER EXTREMITIES, MULTIPLE MEPILEX DRESSINGS NOTED, PATIENT HAS CENTRAL LINE ON LEFT IJ, WITH SOME DRIED BLOOD AROUND INCISION SITE, OTHERWISE DRESSING IS C/D/I, PATIENT WAS REPOSITIONED AND TOLERATED WELL, ORAL CARE DONE, WOODARD CATHETER IN PLACE, CALL LIGHT IN REACH, WILL CONTINUE TO MONITOR.
--- NOTE | 2019-03-23 09:30 | NUR ---
DR. ADAMSON IN TO SEE PATIENT, PLACED HER BACK ON PRESSURE SUPPORT AT 5/FiO2 30 %/400, WITH INSTRUCTIONS TO INCREASE PS TO 10 AFTER ONE HOUR.
--- NOTE | 2019-03-23 09:30 | NUR ---
DR. BATISTA IN TO SEE PATIENT, NO NEW ORDERS RECEIVED.
--- NOTE | 2019-03-23 09:45 | NUR ---
PATIENT PLACED BACK ON AC VENT SETTINGS D/T INABILITY TO PULL VOLUME, DR. UPTON NOTIFIED, RT IN TO CHECK ON PATIENT, SUCTION, AND DO VENT CARE.
--- NOTE | 2019-03-23 11:19 | NUR ---
TUBE FEED TURNED OFF PER DR. UPTON FOR POSSIBLE EXTUBATION THIS AFTERNOON.
--- NOTE | 2019-03-23 13:05 | NUR ---
PATIENT RECEIVED 50 MCG OF FENTANYL FOR 6/10 GENERALIZED PAIN, CALLL LIGHT IN REACH, WILL CONTINUE TO MONITOR.
--- NOTE | 2019-03-23 13:54 | NUR ---
PATIENT RESTING WITH EYES CLOSED, APPEARS TO BE SLEEPING, CALL LIGHT IN REACH, WILL CONTINUE TO MONITOR.
--- NOTE | 2019-03-23 14:30 | NUR ---
VALENTINE CARPENTER, PALLIATIVE CARE IN TO SEE PATIENT AND SPEAK WITH DR. UPTON ABOUT POSSIBLE EXTUBATION AND AVAILABILITY OF MEDICATION.
--- NOTE | 2019-03-23 15:10 | NUR ---
INITIAL PAL CARE VISIT: CASE CONFERENCED WITH HOSPITALIST, CM, INTERNET MARKETER & RN PRIOR TO MY VISIT AND COMPUTER AIDED DESIGN DRAFTER AFTER MY VISIT. NO FAMILY PRESENT BUT THEY ARE ANTICIPATED IN ANY TIME. PT SLEEPING, VENTILATED, GRIMACING AND FROWNING IN HER SLEEP UPON ENTERING THE ROOM. SHE WOKE EASILY WITH MY HAND PLACED ON HERS. SHE GRIPPED MY HAND AND CONTINUED TO GRIMACE WITH FURROWED BROW. I ASKED HER IF SHE WAS HURTING AND SHE NODDED YES. HANDS PLACED ON PT'S FOREHEAD AND ADVENT. SHE NODDED YES, SO I STAYED PUT FOR A COUPLE MINUTES. BEFORE LEAVING, I ASKED PT IF SHE WOULD LIKE MEDICATION FOR HER PAIN AND SHE SHOOK HER HEAD NO. REPORTED ASSESSMENT TO RN. PT HAD RECEIVED MEDICATION PER [facility] FOR PAIN APPROX 2 HOURS AGO. DISCUSSED PLANS WITH COMPUTER AIDED DESIGN DRAFTER, PER HIS CONVERSATIONS WITH PT AND FAMILY YESTERDAY. PT DOES NOT WANT TO PROCEED WITH A TRACHEOSTOMY OR FEEDING TUBE AND FAMILY IN SUPPORT OF HER DECISION. SHE HAS INDICATED TO STAFF AND FAMILY THAT SHE WANTS VENTILATOR TUBE OUT. FAMILY PREPARED TO EXTUBATE AND WILL DISCUSS FURTHER WHEN THEY ARRIVE TODAY. PT'S SISTER, GRISEL, HAS BEEN IDENTIFIED THE MEDICAL DECISION MAKER AND OTHER SUPPORTIVE FAMILY MEMBERS HAVE BEEN PRESENT T/O THE PAST WEEK/EVENTS HERE. I DISCUSSED COMFORT CARE AND ROXANOL PRN FOR AIR HUNGER/RESPIRATORY DISTRESS WITH IN CASE PT'S RESPIRATORY STATUS DECLINES AFTER EXTUBATION. SHE HAS MADE CLEAR THAT SHE DOES NOT WANT CPR OR REINTUBATION IN THE FUTURE. DISCUSSED COMFORT CARE IN THE EVENT THAT PT DECLINES. PT IS 84 YEAR OLD FEMALE WITH VERY LONG LIST OF SERIOUS CHRONIC ILLNESSES TO INCLUDE ACUTE ON CHRONIC RESPIRATORY FAILURE WITH HYPERCAPNIA, ACUTE ON CHRONIC DIASTOLOIC HEART FAILURE & PULMONARY HTN, SIRS, SHOCK, COR PULMONALE, SEIZURE DISORDER, CKD STAGE 3, GERD, PRISCILLA, DEPRESSION, SEIZURE DISORDER AND DEMENTIA. I HAVE OFFERED TO RETURN TO ICU/PT'S ROOM [facility] ARRIVES OR IF EXTUBATION TO OCCUR IF PT/FAMILY/STAFF DESIRED PAL CARE SUPPORT LATER TODAY. PAL CARE TO REMAIN AVAILABLE INDICATED/REQUESTED. WILL FOLLOW DAILY.
--- NOTE | 2019-03-23 15:49 | NUR ---
PATIENT RECEIVED ANOTHER DOSE OF FENTANYL 50 MCG IV FOR PAIN, WAS SUCTIONED AND REPOSITIONED, FAMILY NOW AT BEDSIDE, VALENTINE MARQUIS, PALLIATIVE CARE, NOTIFIED, IN TO SPEAK WITH FAMILY, WAITING FOR DR. UPTON TO COME AND SPEAK WITH FAMILY.
--- NOTE | 2019-03-23 16:15 | NUR ---
FAMILY AT BEDSIDE, LUCY, CUT OFF SAW OPERATOR P[employer] SERVICES IN TO SPEAK WITH FAMILY, DR. UPTON NOTIFIED, NEW ORDERS RECEIVED, HE WILL BE HERE TO SPEAK WITH FAMILY SHORTLY.
--- NOTE | 2019-03-23 16:21 | NUR ---
Second Pal Care visit made when RN called to notify me that pt's family arrived and would like a visit. Reviewed their wishes, based on pt's wishes with them. Reviewed options and scenarios that may occur when pt is extubated. Family wants to support pt's request to be extubated. THey feel she is miserable and in pain with ventilatory support and ET tube. Initially, pt's niece, Kiersten and her were present and then second niece and another family member arrived. All four in agreement and request that pt be extubated this afternoon. Dr Nino is en route and RN has called him. I updated RN, Executive Vice President Business Development and hospitalist of family request. Family requests pt be put on comfort care if resp status declines or if she is experiencing any distress after extubation. If pt stabilizes and survives hospitalization, they request hospice services and support at [facility] and no more transporting to hospital in the future. I believe she would meet hospice criteria under respiratory failure, CHF, CKD, pulm HTN and multiple serious comorbidities, to include being total care and completely dependent with all mobility/ADLs. Pal care to remain available for s/s management and support.
--- NOTE | 2019-03-23 16:35 | NUR ---
PATIENT WAS EXTUBATED AT 16:35, TOLERATED WELL, PRE-SUCTIONED, ETT TUBE REMOVED, SUCTIONED AGAIN, PATIENT STATED "IT HURTS" WITH A HOARSE VOICE, PLACED ON BIPAP 10/5/FiO2 100 %, THEN REDUCED TO FiO2 50 %, DR. UPTON AT BEDSIDE, RT YASMINE AT BEDSIDE, FAMILY WELL, FiO2 TITRATED DOWN TO 30 % WITH PATIENT SATING IN UPPER 90'S, CONTINUES ON LEVOPHED AND PRECEDEX AT THIS TIME, NS AT TKO FOR ANTIBIOTICS, TUBE FEED REMOVED SINCE OG TUBE PULLED WITH ETT TUBE, PATIENT IS RESTING WELL AT THIS TIME, CALL LIGHT IN REACH, WILL CONTINUE TO MONITOR.
--- NOTE | 2019-03-23 17:19 | NUR ---
PATIENT RECEIVED PREVIOUSLY ORDERED 2 MG MORPHINE IV FOR AIR HUNGER AND COMFORT, BIPAP REMOVED PER PATIENT, NOW ON 4L NC SATING AT 96 %, FAMILY AT BEDSIDE, CALL LIGHT IN REACH, WILL CONTINUE TO MONITOR.
--- NOTE | 2019-03-23 17:55 | NUR ---
SHIFT SUMMARY NOTE: NO ACUTE EVENTS DURING THIS SHIFT, PATIENT WAS EXTUBATED AT 15:35, TOLERATED PROCEDURE WELL, CONTINUES TO BE ON LEVOPHED AT 5 MCG AND PRECEDEX AT 0.6, PATIENT WAS BRIEFLY ON BIPAP 10/5/FiO2 30 %, BUT DID NOT TOLERATE MASK WELL, NOW ON 4L NC SATING IN LOW 90'S, PATIENT WAS MOVED FROM ROOM ICU 8 TO ROOM ICU 14, RECEIVED FENTANYL X 2 FOR PAIN AND 2 MG MORPHINE IV ONCE FOR AIR HUNGER AND DISCOMFORT RIGHT AFTER EXTUBATION, CENTRAL LINE IN LEFT IJ SHOWS NO MORE SIGN OF BLEEDING, SLIGHT AMOUNT OF DRIED BLOOD UNDER DRESSING, WOODARD CATHETER REMAINS IN PLACE, NO BM DURING THIS SHIFT, FAMILY AT BEDSIDE, FOR DETAILS SEE SHIFT ASSESSMENT DOCUMENTATION AND NURSES NOTES, CALL LIGHT IN REACH, WILL CONTINUE TO MONITOR AND GIVE REPORT TO ONCOMING VOLCANOLOGY TEACHER.
--- NOTE | 2019-03-23 20:22 | NUR ---
START OF SHIFT REPORT REPORT RECEIVED FROM DAY SHIFT RN. PATIENT IS HAS TKO LINE. ON 0.5MCG/KG/MIN OF PRECEDEX. 5MCG/MIN OF LEVOPHED. VITAL SIGNS ARE STABLE. PATIENT REPORTED STOMACH PAIN WHEN COUGHING. PATIENT WAS GIVEN 25MCG OF FENTANYL @ 1900. HAS CENTRAL LINE TO LEFT IJ WITH BRUISING AROUND IT, DRESSING C/D/I. PATIENT HAS BRUISING ON UPPER EXTREMETIES. HAS A WOUND WITH DRESSING ON HER RIGHT LEG. DRESSING IN C/D/I. LUNG SOUNDS ARE COARSE BILATERAL. LOWER LOBES HAVE DIMINISHED SOUNDS. BOWEL SOUNDS HYPOACTIVE FOUR QUADS. ON 4L NASAL CANNULA. DENIES PAIN. RESPONDS TO PAINFUL STIMULI. SPENCER MARTINEZ
--- NOTE | 2019-03-24 05:44 | NUR ---
SHIFT SUMMARY PATIENT HAS RESTED THROUGHOUT MOST OF THE NIGHT. COMPLAINED OF BACK PAIN 12/01. GAVE PRN MORPHINE WITH NO EFFECT . GAVE FENTANYL TO PATIENT WITH GOOD EFFECT. NO MORE REPORTS OF PAIN OR DISCOMFORT. CENTRAL LINE ON LEFT IJ AND IS PATENT. DRESSING IS C/D/I WITH SOME DRIED BLOOD UNDER DRESSING. WOODARD CATH IS PATENT WITH 1650ML OUTPUT DURING SHIFT. CAPILLARY REFILL UNDER 3 SECONDS. PALPABLE BILATERAL RADIAL AND PEDAL PULSES. DRESSING ON RIGHT LOWER LEG IS C/D/I. HYPOACTIVE BOWEL TONES. LUNGS COARSE WITH RHONCHI BILATERAL. A/O X4. LEVOPHED TITRATED BETWEEN 5-7MCG/MIN THROUGHOUT SHIFT. SYSTOLIC BP 80S TO LOW 100S, MAP 55-80. PRECEDEX 0.4-0.5MCG/KG/MIN THROUGHOUT SHIFT. PT REMAINED CALM AND COMFORTABLE WITH NO SIGNS OF DISTRESS THROUGHOUT SHIFT. NC 4L/MIN THROUGHOUT SHIFT. 02 92-96% THROUGHOUT SHIFT. SPENCER MARTINEZ
--- NOTE | 2019-03-24 07:15 | NUR ---
START OF SHIFT NOTE: RECEIVED REPORT FROM CAROL CASTRO/LUCAS, GARDEN MACHINERY MECHANIC, ASSUMED CARE, PATIENT IS AWAKE, ALERT AND ORIENTED TO SELF, PLACE, FAMILY, PATIENT WAS EXTUBATRED YESTERDAY, ON 4L NC AT THIS TIME AND O2 SATURATION AT 96 %, PATIENT STILL HAS COUGH AND SOME SECRETIONS, LAZARO RECINOS AT BEDSIDE, PATIENT CONTINUES ON LEVOPHED AT 7 AND PRECEDEX AT 0.5, PATIENT APPEARS COMFORTABLY, LUNG SOUNDS ARE COARSE AND SOME RHONCHI THROUGHOUT, CENTRAL LINE IN LEFT IJ, DRESSING C/D/I, NSR WITH PVC'S WITH HR IN 80'S, BOWEL TONES PRESENT IN ALL FOUR QUADRANTS, TEMP WOODARD IN PLACE, CLEAR LIGHT YELLOW URINE DRAINING, PATIENT HAS KERLIX DRESSING ON RLE WHICH IS C/D/I, AND MULTIPLE MEPILEX DRESSINGS ON LLE, BEDSIDE SWALLOW EVALUATION WAS DONE, PATIENT FAILED, AND AM MEDICATIONS WERE NOT GIVEN, DR. UPTON AWARE, PATIENT RECEIVED 50 MCG OF FENTANYL FOR PAIN IN LLE WITH GOOD EFFECTIVENESS, CALL LIGHT IN REACH, WILL CONTINUE TO MONITOR.
--- NOTE | 2019-03-24 09:19 | NUR ---
DR. UPTON IN TO SEE PATIENT, SPOKE WITH GRISEL, PATIENT'S NIECE, AND FAMILY DECIDED TO APPROACH HOSPICE ROUTE, DANNY, PALLIATIVE CARE NOTIFIED, WILL BE HERE WITH CASE MANAGEMENT FUR EXAMINER ONCE FAMILY IS HERE.
--- NOTE | 2019-03-24 10:30 | NUR ---
LUCY, CLIENT LIAISON SERVICES AT BEDSIDE, VISITING WITH PATIENT, ALSO MACHELLE, CASE MANAGEMENT IN TO SEE PATIENT, NOTIFIED ABOUT FAMILY DECISION, PATIENT IS RESTING COMFORTABLY, SCOPOLAMINE PATCH APPLIED FOR SECRETION CONTROL, CALL LIGHT IN REACH, WILL CONTINUET TO MONITOR.
--- NOTE | 2019-03-24 12:45 | NUR ---
PATIENT WAS REPOSITIONED AND SUCTIONED, ALSO ORAL CARE PROVIDED, PATIENT VERBALIZED WISH FOR A COKE/PEPSI, TOOK SMALL SIPS, ABLE TO SWALLOW, HOWEVER, CONTINUES TO COUGH, WAITING FOR FAMILY TO BE AT BEDSIDE TO DISCUSS FURTHER PLAN, LAZARO RECINOS AT BEDSIDE, CALL LIGHT IN REACH, WILL CONTINUE TO MONITOR.
--- NOTE | 2019-03-24 14:01 | NUR ---
RT IN TO SEE PATIENT, ALSO VISITORS AT BEDSIDE, CALL LIGHT IN REACH, WILL CONTINUE TO MONITOR.
--- NOTE | 2019-03-24 14:10 | NUR ---
ALL FAMILY MEMBERS AT BEDSIDE, PALLIATIVE CARE, MIXER OPERATOR SERVICES, CUSTOMER SOLUTIONS TEAMMATE AND DR. UPTON NOTIFIED, LUCY, MIXER OPERATOR SERVICES IN, DR. UPTON IN TO TELL FAMILY THE NEXT STEPS, WAITING FOR PALLIATIVE CARE AND CASE MANAGEMENT, PATIENT WAS DEEP SUCTIONED BY RT, TOLERATED WELL, CALL LIGHT IN REACH, WILL CONTINUE TO MONITOR.
--- NOTE | 2019-03-24 14:56 | NUR ---
DANNY, PALLIATIVE CARE, IN TO SEE PATIENT AND SPEAK WITH FAMILY, WILL SPEAK WITH DR. UPTON ABOUT PLACING COMFORT CARE ORDERS, PATIENT RECEIVED 50 MCG OF FENTANYL FOR GENERALIZED PAIN. PATIENT ASKED FOR ICE CREAM BUT THEN REFUSED IT, CALL LIGHT IN REACH, WILL CONTINUE TO MONITOR.
--- NOTE | 2019-03-24 15:22 | NUR ---
LEVOPHED WAS TURNED OFF AT 15:20 PER FAMILY WISH, MONITOR IN ROOM WAS ALSO TURNED OFF, PATIENT C/O BEING VERY TIRED, PRECEDEX IS STILL INFUSING AT 0.5, CALL LIGHT IN REACH, WILL CONTINUE TO MONITOR.
--- NOTE | 2019-03-24 15:26 | NUR ---
Spiritual Care note: Several visits with pt and family today. Pt appears frail, but appears to enjoy prayer. She does not stay awake long. Met with grand-niece, Yosvany, outside of room. She does not want the pt to suffer. Family is ready to allow pt a natural, peaceful passing. All responded well to gentle counselor/art therapist and affirmation of obvious love. I will remain available.
--- NOTE | 2019-03-24 15:36 | NUR ---
Clinical Visit/Comfort Care: Pt reports moderate pain, she has just been treated with IV fentanyl, per nurse. Pt has small grimmace, reports that she has not been having restful sleep and that she is very fatigued. She is oriented to situation. Family at bedside. They are agreeing to comfort care measures at this time and wish the pt to have symptoms controled during end of life care. Reviewed medications. Pressors will be turned off, Precedex to be continued at this time for comfort. Family verbalizes understanding. Spoke with nurseValentina. Reviewed with Dr. Hinton. Comfort care orders placed. No other concerns at this time.
--- NOTE | 2019-03-24 15:54 | NUR ---
PATIENT RECEIVED 1 MG MORPHINE IV FOR CONTINUOUS PAIN, ALSO ORAL CARE PROVIDED, FAMILY AT BEDSIDE, CALL LIGHT IN REACH, WILL CONTINUE TO MONITOR.
--- NOTE | 2019-03-24 16:50 | NUR ---
PATIENT WAS MADE MEDICAL STATUS WITH TELEMETRY SINCE SHE IS ON COMFORT CARE, HOWEVER, DR. UPTON EMPHASIZED THAT PATIENT NOT BE MOVED AT THIS TIME, IF PATIENT IS STILL ALIVE TOMORROW MORNING TURN OFF PRECEDEX AND MOVE TO MEDICAL FLOOR.
--- NOTE | 2019-03-24 17:15 | NUR ---
DR. BATISTA IN TO SEE PATIENT, WAS UPDATED ON PATIENT STATUS AND CONDITION, NO NEW ORDERS RECEIVED.
--- NOTE | 2019-03-24 17:40 | NUR ---
SHIFT SUMMARY NOTE: NO ACUTE EVENTS DURING THIS SHIFT, PATIENT REMAINS ALERT AND IS NOW COMFORT CARE, HOWEVER, WILL REMAIN ON PRECEDEX DRIP UNTIL TOMORROW MORNING, MEDICAL STATUS WITH TELEMETRY, LEVOPHED DRIP OFF AT 15:22, LASO PATIENT MAY HAVE IV KEPPRA FOR SEIZURE ACTIVITY, AND NEB TREATMENTS WITH DEEP SUCTIONING NEEDED, ATIVAN, MORPHINE AND FENTANYL FOR PAIN AND RESTLESSNESS, PATIENT IS ON 4L NC, SATING AT 96 %, NSR WITH PVC'S, HR IN 70'S, TEMP WOODARD IN PLACE, PER DR. UPTON, IF PATIENT STILL ALIVE TOMORROW MORNING TURN OFF PRECEDEX AND MOVE TO MEDICAL FLOOR, PALLIATIVE CARE, GAS SUBSTATION OPERATOR SERVICES, AND CASE MANGEMENT INVOLVED, FAMILY WAS AT BEDSIDE UNTIL 17:30, WILL CALL FOR UPDATE PERIODICALLY, PATIENT IS RESTING COMFORTABLY AT THIS TIME, FOR DETAILS SEE SHIFT ASSESSMENT DOCUMENTATION AND NURSES NOTES, CALL LIGHT IN REACH, WILL CONTINUE TO MONITOR, AND GIVE REPORT TO ONCOMING BOXING INSTRUCTOR.
--- NOTE | 2019-03-24 20:46 | NUR ---
ASSUMED CARE REPORT RECIEVED. CALLED DR MK ARRIETA TO CONFIRM, PT IS TO BE COMFORT CARE WITH CONTINUATION OF PRECEDEX GTT IN THE ICU AT THIS TIME. PT IS LAYING IN BED AT THIS TIME. NO FAMILY PRESENT AT THIS TIME. PT ON 3L O2 NC. PT CLEARING SECRETIONS INDEPENDENTLY AT THIS TIME. CENTRAL LINE IN PLACE TO LEFT IJ. NS INFUSING TKO, AND PRECEDEX AT 0.5 MCG/KG/HR INITIALLY. PRECEDEX TITRATED DOWN TO 0.2 MCG/KG/HR AT THIS TIME. PT MED PER EMAR FOR PAIN. PT IS ABLE TO MAKE NEEDS KNOWN VERBALLY. WOODARD REMAINS IN PLACE WITH YELLOW OUTPUT NOTED. PT APPEARS COMFORTABLE AT THIS TIME. IF PRECEDEX ABLE TO BE TITRATED OFF, OK TO TRANSFER PT TO MEDICAL PER DR MK ARRIETA. WILL CONTINUE TO MONITOR.
--- NOTE | 2019-03-25 05:25 | NUR ---
PT ARRIVED ON UNIT FROM ICU AT 0510. A/0X3. MAKING NEEDS KNOWN. FREQUENT WET SOUNDING COUGH. NO RESPIRATORY DISTRESS. STATES SHE IS PAINFUL AND FEELS NAUSEAUS. REQUESTING "COLE KAROL". SITTING IN BED WITH HEAD ELEVATED. FC IN PLACE AND DRAINING DARK STRAW COLORED URINE. 02 3L VIA NC. LEFT IJ DRESSING WITH MOD AMT OF SANGUINOUS DRAINAGE. APPEARS TO BE DRY. CALL BUTTON IN REACH. BED LOW. BED ALARM ON.
--- NOTE | 2019-03-25 07:23 | NUR ---
SHIFT SUMMARY: SITTING UP IN BED. MAKING NEEDS KNOWN. TANGENTIAL SPEECH. STATING PAIN IS STILL PRESENT. DENIES NAUSEA. REQUESTING PO FLUIDS. RESPS NON-LABORED. FREQUENT WET SOUNDING, NON-PRODUCTIVE COUGH. NO RESP DISTRESS. ONCOMING SHIFT TO CONTINUE TO PROVIDE COMFORT CARE/PRN ANALGESICS. BED LOW, CALL BUTTON IN REACH.
--- NOTE | 2019-03-25 10:40 | NUR ---
COMFORT CARE VISIT: Pt just finishng with SOCIAL RESEARCH ASSISTANT for bath and personal care. She looks peaceful and comfortable. When asked about s/s she reports nausea earlier that was relieved with medicine given. She says she is hurting a little, mostly from stomach cramping. Offered warm blanket to abd, pt receptive and stated that felt really good. Time spend talking with pt about her rina family. No family members present currently. Discussed my visit and pt's needs with RN. She states pt still has orders for NPO status and is asking for cookies. Nutritional orders changed to allow for PO intake per pt as requested & tolerated, advance as tolerated with no tray sent for meals. Discussed current medications and plans. Pt lives at local [place] [facility] care and could return there with hospice support. Will discuss with CM assigned to pt.
--- NOTE | 2019-03-25 16:09 | NUR ---
DISCHARGE SUMMARY NIMA WAS MEDICATED WITH ROXANOL PRIOR TO LEAVING. SHE WAS MUCH MORE ALERT AND RESPONSIVE THIS MORNING, CHATTING WITH ME. SHE HAS BECOME MUCH MORE LETHARGIC AND CONFUSED THIS AFTERNOON. SHE OPENS HER EYES IF YOU TOUCH HER, AND WILL ANSWER A BRIEF YES/NO QUESTION BEFORE RETURNING TO SLEEP. R IJ REMOVED BY CHARGE NURSE PRIOR TO LEAVING, DRESSING C/D/I. PAPERWORK GIVEN TO STRETCHER TRANSPORTATION STAFF. FAMILY PACKED UP BELONGINGS.
--- NOTE | 2019-03-25 16:39 | NUR ---
CALLED REPORT TO LOWELL [facility]
== END 2019-03-25 16:08 | disposition hospice, home (50) | DRG 870 ==
LOC: ER 18:40 → MEDS 21:26 → ICUE 21:26 → MEDS 21:34 → ICUE 03-17 06:24 → ICUW 03-23 18:00 → MEDS 03-25 05:02
PROVIDERS: Internal Medicine; Internal Medicine Critical Care Medicine; Internal Medicine Pulmonary Disease; Nurse Practitioner Acute Care; Physician Assistant; ADMIT Internal Medicine
PROC: 5A09357 Assistance with Respiratory Ventilation, Less than 24 Consecutive Hours, Continuous Positive Airway Pressure (ICD-10-PCS; 2019-03-15)
PROC: 02HV33Z Insertion of Infusion Device into Superior Vena Cava, Percutaneous Approach (ICD-10-PCS; principal; 2019-03-17)
PROC: 3E043XZ Introduction of Vasopressor into Central Vein, Percutaneous Approach (ICD-10-PCS; 2019-03-17)
PROC: 5A1955Z Respiratory Ventilation, Greater than 96 Consecutive Hours (ICD-10-PCS; 2019-03-17)
PROC: 0BH18EZ Insertion of Endotracheal Airway into Trachea, Via Natural or Artificial Opening Endoscopic (ICD-10-PCS; 2019-03-17)
DX: A41.9 Sepsis, unspecified organism (principal); J96.21 Acute and chronic respiratory failure with hypoxia; J96.22 Acute and chronic respiratory failure with hypercapnia; I50.33 Acute on chronic diastolic (congestive) heart failure; G92 Toxic encephalopathy; R65.21 Severe sepsis with septic shock; J44.1 Chronic obstructive pulmonary disease with (acute) exacerbation; N39.0 Urinary tract infection, site not specified; N17.9 Acute kidney failure, unspecified; Z99.81 Dependence on supplemental oxygen; Z99.3 Dependence on wheelchair; F03.90 Unspecified dementia, unspecified severity, without behavioral disturbance, psychotic disturbance, mood disturbance, and anxiety; N18.3 Chronic kidney disease, stage 3 (moderate); Z86.711 Personal history of pulmonary embolism; K21.9 Gastro-esophageal reflux disease without esophagitis; G40.909 Epilepsy, unspecified, not intractable, without status epilepticus; E87.5 Hyperkalemia; Z86.718 Personal history of other venous thrombosis and embolism; Z86.12 Personal history of poliomyelitis; E66.9 Obesity, unspecified; Z68.30 Body mass index [BMI] 30.0-30.9, adult; R32 Unspecified urinary incontinence; I27.21 Secondary pulmonary arterial hypertension; G47.33 Obstructive sleep apnea (adult) (pediatric); E87.6 Hypokalemia; I27.81 Cor pulmonale (chronic); Z51.5 Encounter for palliative care; B96.20 Unspecified Escherichia coli [E. coli] as the cause of diseases classified elsewhere; G47.30 Sleep apnea, unspecified
CPT/HCPCS: 0099U; 31500; 31720; 36415; 36430; 36556; 36600; 51702; 71045; 71260; 80048; 81001; 82330; 82803; 82947; 83605; 83735; 83880; 84100; 84132; 84145; 84484; 85014; 85018; 85025; 85027; 85610; 85730; 86900; 86901; 87040; 87070; 87077; 87086; 87186; 87205; 87493; 93005; 93010; 93306; 94002; 94003; 94640; 94644; 94660; 94667; 94760; 94762; 96365-59; 96375-59; 99285-25; A9270; C1751; C9113; J0696; J1120; J1650; J1815; J1940; J1953; J1956; J2060; J2270; J2405; J2704; J2930; J3010; J3480; J7030; J7050; J7060; J7120; J7799; P9059; Q9967